=== PATIENT | female | born 1960 | race Caucasian/White ===

== ENCOUNTER → 2017-12-04 13:11 | Outpatient (REF) | payer MEDICARE, SELFPAY | LOC: LAB 13:11 | PROVIDERS: Visit Provider Emergency Medicine ==

== ENCOUNTER → 2018-01-01 13:56 | Outpatient (CLI) | payer MEDICARE, SELFPAY ==
[2018-01-01 18:57] LABS: Amphetamine/Metha Screen,Urine Negative ng/mL (<1000); Barbiturates Screen,Urine Negative ng/mL (<200); Benzodiazepines Screen,Urine Negative ng/mL (200); Cannabinoid Screen,Urine Positive ng/mL (<50); Cocaine Screen,Urine Negative ng/g (<300); Methadone Screen,Urine Negative ng/mL (<300); Opiate Screen,Urine Positive ng/mL (<300); Phencyclidine Screen,Urine Negative ng/mL (<25)
== END ==
PROVIDERS: Visit Provider Emergency Medicine
DX: Z79.899 Other long term (current) drug therapy (principal)
CPT/HCPCS: 80305

== ENCOUNTER → 2018-02-01 14:55 | Outpatient (REF) | payer MEDICARE, SELFPAY ==
[2018-02-01 17:45] LABS: Microscopic, Urine URINE MICROSCOPIC (MICROSCOPIC)
[2018-02-01 18:45] LABS: Appearance,Urine CLEAR (Clear); Bilirubin,Urine Negative (Negative); Blood, Urine Negative (Negative); Color,Urine YELLOW (Yellow); Glucose,Urine (UA) Negative (Negative); Ketones,Urine Negative (Negative); Leukocyte Esterase,Urine 1+ (Negative); Nitrate,Urine Negative (Negative); Protein,Urine Negative (Negative); Specific Gravity, Urine <= 1.005 (1.005-1.030); Urobilinogen,Urine 0.2 EU/dl (0.2)
[2018-02-01 18:48] LABS: Basophils % 0.4 % (0.1-2.0); Eosinophils # 0.4 K/mm3 (0.0-0.4); Eosinophils % 5.5 % (0.1-12.0); Hematocrit 37.6 % (37.0-47.0); Hemoglobin 11.9 g/dL (12.2-16.2); Lymphocytes # 1.6 K/mm3 (0.7-4.5); Lymphocytes % 24.5 K/mm3 (10-50); Mean Corpuscular HGB Conc 31.6 g/dL (31.8-35.4); Mean Corpuscular Volume 94.9 fl (81-99); Mean Platelet Volume 8.8 fl (7.4-10.4); Monocytes # 0.4 K/mm3 (0.1-1.0); Monocytes % 5.5 % (1.7-9.3); Neutrophils # 4.1 K/mm3 (1.8-7.8); Platelet Count 268 K/mm3 (142-424); Red Blood Count 3.97 M/mm3 (4.20-5.40); Red Cell Distribution Width 14.2 % (11.5-17.5); White Blood Count 6.4 K/mm3 (4.8-10.8)
[2018-02-01 18:54] LABS: Amphetamine/Metha Screen,Urine Negative ng/mL (<1000); Barbiturates Screen,Urine Negative ng/mL (<200); Benzodiazepines Screen,Urine Negative ng/mL (200); Cannabinoid Screen,Urine Positive ng/mL (<50); Cocaine Screen,Urine Negative ng/g (<300); Methadone Screen,Urine Negative ng/mL (<300); Opiate Screen,Urine Negative ng/mL (<300); Phencyclidine Screen,Urine Negative ng/mL (<25)
[2018-02-01 19:03] LABS: Bacteria,Urine Trace /lpf; Transitional Epi Cells,Urine OCC #/lpf (0-3)
[2018-02-01 19:17] LABS: Alanine Aminotransferase 22 U/L (12-78); Albumin Level 4.2 gm/dL (3.4-5.0); Albumin/Globulin Ratio 1.6 (1.1-1.8); Alkaline Phosphatase 117 U/L (46-116); Anion Gap 14.8 mEq/L (5-15); Aspartate Amino Transferase 18 U/L (15-37); Bilirubin,Total 0.2 mg/dL (0.2-1.0); Blood Urea Nitrogen 9 mg/dL (7-18); Calcium 8.9 mg/dL (8.5-10.1); Carbon Dioxide 26 mmol/L (21.0-32.0); Chloride 104 mmol/L (98-107); Creatinine,Serum 1.09 mg/dL (0.55-1.02); Estimated Glomerular Filt Rate 52 ml/min (>60); GFR (African American) 63 ML/MIN (>60); Globulin 2.7 gm/dl (1.3-3.2); Glucose 139 mg/dL (74-106); Potassium 3.8 mmoL/L (3.5-5.1); Sodium 141 mmol/L (136-145); Thyroid Stimulating Hormone 0.69 uIU/ml (0.358-3.740); Total Protein,Serum 6.9 gm/dL (6.4-8.2)
[2018-02-03 16:32] LABS: Vitamin D 25 Hydroxy 37.3 ng/mL (30.0-100.0)
== END ==
LOC: LAB 14:55
PROVIDERS: Visit Provider Emergency Medicine
DX: Z79.899 Other long term (current) drug therapy (principal); N39.0 Urinary tract infection, site not specified; M54.9 Dorsalgia, unspecified; R53.83 Other fatigue
CPT/HCPCS: 80053; 80305; 81001; 82652; 84439; 84443; 85025; 87086

== ENCOUNTER → 2018-02-17 13:29 | Outpatient (REF) | payer MEDICARE, SELFPAY ==
[2018-02-19 10:52] LABS: Vitamin B12 454 pg/mL (232-1245)
== END ==
LOC: LAB 13:29
PROVIDERS: Visit Provider Emergency Medicine
DX: R53.83 Other fatigue (principal)
CPT/HCPCS: 82607

== ENCOUNTER → 2018-03-03 15:09 | Outpatient (REF) | payer MEDICARE, SELFPAY ==
[2018-03-03 21:01] LABS: Amphetamine/Metha Screen,Urine Negative ng/mL (<1000); Barbiturates Screen,Urine Negative ng/mL (<200); Benzodiazepines Screen,Urine Negative ng/mL (200); Cannabinoid Screen,Urine Negative ng/mL (<50); Cocaine Screen,Urine Negative ng/g (<300); Methadone Screen,Urine Negative ng/mL (<300); Opiate Screen,Urine Positive ng/mL (<300); Phencyclidine Screen,Urine Negative ng/mL (<25)
== END ==
LOC: LAB 15:09
PROVIDERS: Visit Provider Emergency Medicine
DX: Z79.899 Other long term (current) drug therapy (principal)
CPT/HCPCS: 80305

== ENCOUNTER → 2018-03-31 08:13 | Outpatient (CLI) | payer MEDICARE, SELFPAY ==
[2018-04-01 10:25] LABS: Amphetamine/Metha Screen,Urine Negative ng/mL (<1000); Barbiturates Screen,Urine Negative ng/mL (<200); Benzodiazepines Screen,Urine Negative ng/mL (200); Cannabinoid Screen,Urine Positive ng/mL (<50); Cocaine Screen,Urine Negative ng/g (<300); Methadone Screen,Urine Negative ng/mL (<300); Opiate Screen,Urine Negative ng/mL (<300); Phencyclidine Screen,Urine Negative ng/mL (<25)
== END ==
PROVIDERS: Visit Provider Emergency Medicine
DX: Z79.899 Other long term (current) drug therapy (principal)
CPT/HCPCS: 80305

== ENCOUNTER → 2018-05-03 13:02 | Outpatient (REF) | payer MEDICARE, SELFPAY ==
[2018-05-03 19:30] LABS: Amphetamine/Metha Screen,Urine Negative ng/mL (<1000); Barbiturates Screen,Urine Negative ng/mL (<200); Benzodiazepines Screen,Urine Negative ng/mL (<200); Cannabinoid Screen,Urine Positive ng/mL (<50); Cocaine Screen,Urine Negative ng/mL (<300); Methadone Screen,Urine Negative ng/mL (<300); Opiate Screen,Urine Positive ng/mL (<300); Phencyclidine Screen,Urine Negative ng/mL (<25)
== END ==
LOC: LAB 13:02
PROVIDERS: Visit Provider Emergency Medicine
DX: M54.5 Low back pain (principal)
CPT/HCPCS: 80305

== ENCOUNTER → 2018-05-25 13:43 | Outpatient (CLI) | payer MEDICARE, SELFPAY | PROVIDERS: Visit Provider Physician Assistant | DX: Z79.899 Other long term (current) drug therapy (principal); M54.9 Dorsalgia, unspecified ==

== ENCOUNTER → 2018-05-25 14:00 | Outpatient (REF) | payer MEDICARE, SELFPAY ==
[2018-05-25 18:48] LABS: Amphetamine/Metha Screen,Urine Negative ng/mL (<1000); Barbiturates Screen,Urine Negative ng/mL (<200); Benzodiazepines Screen,Urine Positive ng/mL (<200); Cannabinoid Screen,Urine Positive ng/mL (<50); Cocaine Screen,Urine Negative ng/mL (<300); Methadone Screen,Urine Negative ng/mL (<300); Opiate Screen,Urine Negative ng/mL (<300); Phencyclidine Screen,Urine Negative ng/mL (<25)
== END ==
LOC: LAB 14:00
PROVIDERS: Visit Provider Emergency Medicine
DX: Z79.899 Other long term (current) drug therapy (principal); M54.9 Dorsalgia, unspecified
CPT/HCPCS: 80305; 87077; 87086

== ENCOUNTER → 2018-06-01 13:44 | Outpatient (CLI) | payer MEDICARE, SELFPAY | PROVIDERS: Visit Provider Physician Assistant | DX: M54.9 Dorsalgia, unspecified (principal) ==

== ENCOUNTER → 2018-07-06 13:44 | Outpatient (REF) | payer MEDICARE, SELFPAY ==
[2018-07-06 18:00] LABS: Amphetamine/Metha Screen,Urine Negative ng/mL (<1000); Barbiturates Screen,Urine Negative ng/mL (<200); Benzodiazepines Screen,Urine Negative ng/mL (<200); Cannabinoid Screen,Urine Positive ng/mL (<50); Cocaine Screen,Urine Negative ng/mL (<300); Methadone Screen,Urine Negative ng/mL (<300); Opiate Screen,Urine Positive ng/mL (<300); Phencyclidine Screen,Urine Negative ng/mL (<25)
== END ==
LOC: LAB 13:44
PROVIDERS: Visit Provider Emergency Medicine
DX: Z79.899 Other long term (current) drug therapy (principal); R39.89 Other symptoms and signs involving the genitourinary system
CPT/HCPCS: 80305; 87086

== ENCOUNTER → 2018-08-04 14:09 | Outpatient (REF) | payer MEDICARE, SELFPAY ==
[2018-08-04 18:41] LABS: Amphetamine/Metha Screen,Urine Negative ng/mL (<1000); Barbiturates Screen,Urine Negative ng/mL (<200); Benzodiazepines Screen,Urine Negative ng/mL (<200); Cannabinoid Screen,Urine Positive ng/mL (<50); Cocaine Screen,Urine Negative ng/mL (<300); Methadone Screen,Urine Negative ng/mL (<300); Opiate Screen,Urine Positive ng/mL (<300); Phencyclidine Screen,Urine Negative ng/mL (<25)
== END ==
LOC: LAB 14:09
PROVIDERS: Visit Provider Emergency Medicine
DX: Z79.899 Other long term (current) drug therapy (principal)
CPT/HCPCS: 80305

== ENCOUNTER → 2018-09-02 16:33 | Outpatient (CLI) | payer MEDICARE, SELFPAY ==
[2018-09-03 18:29] LABS: Amphetamine/Metha Screen,Urine Negative ng/mL (<1000); Barbiturates Screen,Urine Negative ng/mL (<200); Benzodiazepines Screen,Urine Negative ng/mL (<200); Cannabinoid Screen,Urine Positive ng/mL (<50); Cocaine Screen,Urine Negative ng/mL (<300); Methadone Screen,Urine Negative ng/mL (<300); Opiate Screen,Urine Positive ng/mL (<300); Phencyclidine Screen,Urine Negative ng/mL (<25)
[2018-09-10 09:24] LABS: Opiates Negative ng/mL (Cutoff=100)
== END ==
PROVIDERS: PCP Emergency Medicine; Visit Provider Emergency Medicine
DX: M54.5 Low back pain (principal)
CPT/HCPCS: 80305; 80361; G0480

== ENCOUNTER → 2018-10-04 18:25 | Outpatient (CLI) | payer MEDICARE, SELFPAY ==
[2018-10-04 19:14] LABS: Amphetamine/Metha Screen,Urine Negative ng/mL (<1000); Barbiturates Screen,Urine Negative ng/mL (<200); Benzodiazepines Screen,Urine Negative ng/mL (<200); Cannabinoid Screen,Urine Positive ng/mL (<50); Cocaine Screen,Urine Negative ng/mL (<300); Methadone Screen,Urine Negative ng/mL (<300); Opiate Screen,Urine Positive ng/mL (<300); Phencyclidine Screen,Urine Negative ng/mL (<25)
== END ==
PROVIDERS: Visit Provider Emergency Medicine
DX: Z79.899 Other long term (current) drug therapy (principal)
CPT/HCPCS: 80305

== ENCOUNTER → 2018-11-05 18:09 | Outpatient (CLI) | payer MEDICARE, SELFPAY ==
[2018-11-05 21:25] LABS: Amphetamine/Metha Screen,Urine Negative ng/mL (<1000); Barbiturates Screen,Urine Negative ng/mL (<200); Benzodiazepines Screen,Urine Negative ng/mL (<200); Cannabinoid Screen,Urine Positive ng/mL (<50); Cocaine Screen,Urine Negative ng/mL (<300); Methadone Screen,Urine Negative ng/mL (<300); Opiate Screen,Urine Positive ng/mL (<300); Phencyclidine Screen,Urine Negative ng/mL (<25)
== END ==
PROVIDERS: Visit Provider Emergency Medicine
DX: Z79.899 Other long term (current) drug therapy (principal)
CPT/HCPCS: 80305

== ENCOUNTER → 2018-11-24 10:06 | Outpatient (CLI) | payer MEDICARE, SELFPAY ==
--- NOTE | 2018-11-24 10:09 | MM_ITS ---
MM Dig screening mamm BI w/CAD CAD Screening COMPARISON: Digital mammograms with CAD 04/23/2017 and 08/12/2011 INDICATION: There is a history of breast cancer in patient's 2 sisters diagnosed at age 60 and age 45. TECHNIQUE: Standard CC and MLO images were obtained. R2 CAD reviewed. FINDINGS: Moderate diffuse heterogenic fibroglandular densities are seen in the central portions of both breasts and the findings are fairly symmetrical and bilateral. There is no suspicious lesion and there are no suspicious microcalcifications. IMPRESSION: Moderate heterogenic breast density with no suspicious lesion seen BI-RADS Category: 1 Negative RECOMMENDED FOLLOW-UP: 1YR - 1 YEAR FOLLOW-UP (A letter has been sent to the patient regarding results of the study.)
== END ==
PROVIDERS: PCP Emergency Medicine; Visit Provider Emergency Medicine
DX: Z12.31 Encounter for screening mammogram for malignant neoplasm of breast (principal)
CPT/HCPCS: 77067

== ENCOUNTER → 2019-01-04 17:32 | Outpatient (CLI) | payer MEDICARE, SELFPAY ==
[2019-01-04 18:32] LABS: Basophils % 0.3 % (0.1-2.0); Eosinophils # 0.3 K/mm3 (0.0-0.4); Eosinophils % 4.5 % (0.1-12.0); Hematocrit 37.2 % (37.0-47.0); Hemoglobin 11.9 g/dL (12.2-16.2); Lymphocytes # 1.8 K/mm3 (0.7-4.5); Lymphocytes % 25.9 % (10-50); Mean Corpuscular Hemoglobin 29.1 pg (27.0-31.2); Mean Corpuscular Volume 91.1 fl (81-99); Mean Platelet Volume 8.4 fl (7.4-10.4); Monocytes # 0.2 K/mm3 (0.1-1.0); Monocytes % 2.7 % (1.7-9.3); Neutrophils # 4.6 K/mm3 (1.8-7.8); Neutrophils % 66.5 % (37.0-80.0); Platelet Count 296 K/mm3 (142-424); Red Blood Count 4.09 M/mm3 (4.20-5.40); Red Cell Distribution Width 15.2 % (11.5-17.5); White Blood Count 6.8 K/mm3 (4.8-10.8)
[2019-01-04 19:03] LABS: Alanine Aminotransferase 18 U/L (12-78); Albumin/Globulin Ratio 1.3 (1.1-1.8); Alkaline Phosphatase 123 U/L (46-116); Anion Gap 14.1 mEq/L (5-15); Aspartate Amino Transferase 10 U/L (15-37); Bilirubin,Total 0.5 mg/dL (0.2-1.0); Blood Urea Nitrogen 8 mg/dL (7-18); Calcium 9.1 mg/dL (8.5-10.1); Carbon Dioxide 28 mmol/L (21.0-32.0); Chloride 104 mmol/L (98-107); Chol/HDL Ratio 3.6 (1-3.5); Cholesterol 175 mg/dL (140-200); Creatinine,Serum 1.22 mg/dL (0.55-1.02); Estimated Glomerular Filt Rate 45 ml/min (>60); Free T4 (Free Thyroxine) 0.73 ng/dl (0.76-1.46); GFR (African American) 55 ML/MIN (>60); Globulin 3.1 gm/dl (1.3-3.2); Glucose 130 mg/dL (74-106); HDL Cholesterol 49 mg/dL (29-89); LDL Cholesterol 91 mg/dL (0-130); Potassium 4.1 mmoL/L (3.5-5.1); Sodium 142 mmol/L (136-145); Thyroid Stimulating Hormone 1.36 uIU/ml (0.358-3.740); Total Protein,Serum 7.1 gm/dL (6.4-8.2); Triglycerides 174 mg/dL (30-200); VLDL Cholesterol 35 mg/dL (0-40)
[2019-01-04 21:39] LABS: Amphetamine/Metha Screen,Urine Negative ng/mL (<1000); Barbiturates Screen,Urine Negative ng/mL (<200); Benzodiazepines Screen,Urine Negative ng/mL (<200); Cannabinoid Screen,Urine Positive ng/mL (<50); Cocaine Screen,Urine Negative ng/mL (<300); Methadone Screen,Urine Negative ng/mL (<300); Opiate Screen,Urine Positive ng/mL (<300); Phencyclidine Screen,Urine Negative ng/mL (<25)
[2019-01-08 10:07] LABS: Vitamin B12 692 pg/mL (232-1245); Vitamin D 25 Hydroxy 31.4 ng/mL (30.0-100.0)
== END ==
PROVIDERS: Visit Provider Emergency Medicine
DX: I10 Essential (primary) hypertension (principal); Z79.899 Other long term (current) drug therapy
CPT/HCPCS: 80053; 80061; 80305; 82607; 82652; 84439; 84443; 85025

== ENCOUNTER → 2019-03-01 17:51 | Outpatient (CLI) | payer MEDICARE, MEDICAID, SELFPAY ==
[2019-03-01 19:14] LABS: Amphetamine/Metha Screen,Urine Negative ng/mL (<1000); Barbiturates Screen,Urine Negative ng/mL (<200); Benzodiazepines Screen,Urine Negative ng/mL (<200); Cannabinoid Screen,Urine Positive ng/mL (<50); Cocaine Screen,Urine Negative ng/mL (<300); Methadone Screen,Urine Negative ng/mL (<300); Opiate Screen,Urine Positive ng/mL (<300); Phencyclidine Screen,Urine Negative ng/mL (<25)
[2019-03-01 19:23] LABS: Hemoglobin A1C 5.9 % (0.0-7.0)
== END ==
PROVIDERS: Visit Provider Emergency Medicine
DX: R73.09 Other abnormal glucose (principal); Z79.899 Other long term (current) drug therapy
CPT/HCPCS: 80305; 83036

== ENCOUNTER → 2019-05-02 17:23 | Outpatient (CLI) | payer MEDICARE, MEDICAID, SELFPAY ==
[2019-05-02 18:15] LABS: Amphetamine/Metha Screen,Urine Negative ng/mL (<1000); Barbiturates Screen,Urine Negative ng/mL (<200); Benzodiazepines Screen,Urine Negative ng/mL (<200); Cannabinoid Screen,Urine Positive ng/mL (<50); Cocaine Screen,Urine Negative ng/mL (<300); Methadone Screen,Urine Negative ng/mL (<300); Opiate Screen,Urine Positive ng/mL (<300); Phencyclidine Screen,Urine Negative ng/mL (<25)
== END ==
PROVIDERS: Visit Provider Emergency Medicine
DX: Z79.899 Other long term (current) drug therapy (principal)
CPT/HCPCS: 80305

== ENCOUNTER → 2019-07-01 17:12 | Outpatient (CLI) | payer MEDICARE, MEDICAID, SELFPAY ==
[2019-07-01 18:10] LABS: Amphetamine/Metha Screen,Urine Negative ng/mL (<1000); Barbiturates Screen,Urine Negative ng/mL (<200); Benzodiazepines Screen,Urine Negative ng/mL (<200); Cannabinoid Screen,Urine Positive ng/mL (<50); Cocaine Screen,Urine Negative ng/mL (<300); Methadone Screen,Urine Negative ng/mL (<300); Opiate Screen,Urine Positive ng/mL (<300); Phencyclidine Screen,Urine Negative ng/mL (<25)
== END ==
PROVIDERS: Visit Provider Emergency Medicine
DX: M54.16 Radiculopathy, lumbar region (principal)
CPT/HCPCS: 80305

== ENCOUNTER → 2019-08-30 17:21 | Outpatient (CLI) | payer MEDICARE, MEDICAID, SELFPAY ==
[2019-08-30 18:27] LABS: Amphetamine/Metha Screen,Urine Negative ng/mL (<1000); Barbiturates Screen,Urine Negative ng/mL (<200); Benzodiazepines Screen,Urine Negative ng/mL (<200); Cannabinoid Screen,Urine Positive ng/mL (<50); Cocaine Screen,Urine Negative ng/mL (<300); Methadone Screen,Urine Negative ng/mL (<300); Opiate Screen,Urine Negative ng/mL (<300); Phencyclidine Screen,Urine Negative ng/mL (<25)
[2019-09-09 17:14] LABS: Opiates Negative ng/mL (Cutoff=100)
== END ==
PROVIDERS: Visit Provider Emergency Medicine
DX: M54.16 Radiculopathy, lumbar region (principal)
CPT/HCPCS: 80305; 80361; G0480

== ENCOUNTER → 2019-10-21 16:54 | Outpatient (CLI) | payer MEDICARE, MEDICAID, SELFPAY ==
[2019-10-21 19:02] LABS: Amphetamine/Metha Screen,Urine Negative ng/mL (<1000); Barbiturates Screen,Urine Negative ng/mL (<200); Benzodiazepines Screen,Urine Negative ng/mL (<200); Cannabinoid Screen,Urine Positive ng/mL (<50); Cocaine Screen,Urine Negative ng/mL (<300); Methadone Screen,Urine Negative ng/mL (<300); Opiate Screen,Urine Positive ng/mL (<300); Phencyclidine Screen,Urine Negative ng/mL (<25)
== END ==
PROVIDERS: Visit Provider Emergency Medicine
DX: M54.16 Radiculopathy, lumbar region (principal)
CPT/HCPCS: 80305

== ENCOUNTER 2019-11-08 13:28 | Observation (INO) ==
--- NOTE | 2019-11-08 13:39 | Emergency Department Note ---
ED Disposition Clinical Impression: Acute dyspnea, Acute exacerbation of chronic obstructive airways disease, Failure of outpatient treatment Disposition: Admitted As Inpatient Condition on Discharge: Fair Referrals: Carlos Hernandez MD [Primary Care Provider] - Time of Disposition: 16:25 - Critical Care Critical Care Time: Yes (30) Attestation: On , the high probability of a clinically significant, sudden or life threatening deterioration of the following system(s) required my full and direct attention, intervention and personal management. The time I documented below is in addition to time spent performing reported procedures but includes the following listed in this critical care notation. Vital system(s) involved:: Respiratory Failure My critical care processes included: Assessment & monitoring of V/S, Initial and Re-exams, Data Review/Interpretation, Coordinating Care, Medication Orders and management, Documentation Medical Decision Making - Nicola Inquiry Pt receiving controlled substance: Yes Nicola was queried for this patient: No Risks and benefits of using a controlled substance: were not discussed with pt by me Vital Signs: 11/08/19 13:29 11/08/19 14:58 Temperature 98.4 F Temperature Source Oral Pulse Rate 77 Pulse Rate [Right] 75 Respiratory Rate 22 Blood Pressure [Right Arm] 168/82 H Blood Pressure Mean [Right Arm] 110 02 Sat by Pulse Oximetry 100 - Lab Data Lab results reviewed: Yes: I reviewed the patient's lab results. Lab Results 11/08/19 13:35: Specimen Source L brachial, O2 % Room air, ABG pH 7.61 H*, ABG pCO2 15.1 L, ABG pO2 70.0 L, ABG HCO3 15.0 L, ABG Total CO2 15.4 L, ABG O2 Saturation 97, ABG Base Excess -6.4 L 11/08/19 13:45: WBC 9.1, RBC 4.50, Hgb 13.3, Hct 40.5, MCV 90.0, MCH 29.5, MCHC 32.8, RDW 14.6, Plt Count 268, MPV 8.5, Neut % (Auto) 78.5, Lymph % (Auto) 18.2, [place] % (Auto) 2.8, Eos % (Auto) 0.3, Baso % (Auto) 0.3, Neut # (Auto) 7.2, Lymph # (Auto) 1.7, [place] # (Auto) 0.3, Eos # (Auto) 0.0, Baso # (Auto) 0.0 11/08/19 13:45: Sodium 139, Potassium 3.0 L, Chloride 101, Carbon Dioxide 19 L, Anion Gap 22.0 H, BUN 16, Creatinine 1.41 H, Estimated Creat Clear 46, Estimated GFR 38 L, Est GFR ( Amer) 46 L, Glucose 118 H, Calcium 9.5, Total Bilirubin 0.3, AST 17, ALT 23, Alkaline Phosphatase 128 H, Troponin I < 0.02, C- Reactive Protein < 0.2, Total Protein 7.9, Albumin 4.4, Globulin 3.5 H, Albumin/Globulin Ratio 1.3 11/08/19 13:45: Lactate 3.1 H 11/08/19 13:45: B-Natriuretic Peptide 54 11/08/19 13:45: ESR 21 11/08/19 13:45: Chlamy pneumoniae PCR Not detected, Adenovirus (PCR) Not detected, B. pertussis DNA (PCR) Not detected, Coronavirus OC43 (PCR) Not detected, Coronavirus HKU1 (PCR) Not detected, Coronavirus 229E (PCR) Not detec selma, Coronavirus NL63 (PCR) Not detected, Human Metapneumovir PCR Detected A, Influenza A (H1) PCR Not detected, Influ A (H1N1/09) PCR Not detected, Influenza A (H3) PCR Not detected, Influenza Type A (PCR) Not detected, Influenza Type B (PCR) Not detected, M. pneumoniae (PCR) Not detected, Parainfluenza 1 (PCR) Not detected, Parainfluenza 2 (PCR) Not detected, Parainfluenza 3 (PCR) Not detected, Parainfluenza 4 (PCR) Not detected, RSV (PCR) Not detected, Entero/Rhino (PCR) Not detected Result diagrams: 11/08/19 13:45 11/08/19 13:45 Orders (Tests/Meds): ED MEDICATIONS Generic Name Dose Route Start Last Admin Trade Name Freq PRN Reason Stop Dose Admin Sodium Chloride 1,000 mls @ 150 mls/hr 11/08/19 15:00 11/08/19 15:08 Sod Chlor 0.9% 1000ml Bag IV 12/08/19 14:59 150 mls/hr .[id number] BRITTANY Administration Sodium Chloride 3 ml 11/08/19 13:52 Sodium Chloride 3% 15ml [facility] 12/08/19 13:51 ONCE PRN INDUCE SPUTUM COLLECTION Sodium Chloride 3 ml 11/08/19 15:34 Sodium Chloride 3% 15ml [facility] 12/08/19 15:33 ONCE PRN INDUCE SPUTUM COLLECTION Discontinued Medications Generic Name Dose Route Start Last Admin Trade Name Freq PRN Reason Stop Dose Admin Albuterol Sulfate 5 mg 11/08/19 14:45 11/08/19 14:56 Albuterol 0.083% 2.5mg/3ml [facility] 11/08/19 14:46 5 mg ONCE ONE Administration Albuterol/Ipratropium 3 ml 11/08/19 13:36 11/08/19 13:51 Duoneb 3ml [facility] 11/08/19 13:37 3 ml ONCE ONE Administration Ceftriaxone Sodium 1 gm/ 50 mls @ 100 mls/hr 11/08/19 13:36 11/08/19 13:51 Sodium Chloride IV 11/08/19 14:05 100 mls/hr ONCE STA Administration Protocol Methylprednisolone Sodium Succinate 125 mg 11/08/19 14:45 11/08/19 15:08 Solu-Medrol 125mg/2ml Vial IV 11/08/19 14:46 125 mg ONCE ONE Administration Potassium Chloride 40 meq 11/08/19 14:55 11/08/19 15:08 Klor-Con 20meq Tablet PO 11/08/19 14:56 40 meq ONCE ONE Administration ORDERS Category Date Time Status Troponin I Q3H Lab 11/08/19 16:45 Ordered Troponin I Q3H Lab 11/08/19 19:45 Ordered Blood Culture Stat Micro 11/08/19 13:45 Received - Radiology Data #1 Image(s): Chest FINDINGS: The cardiomediastinal silhouette and pulmonary vascularity are within normal limits. There is chronic coarsening of the bronchovascular markings/COPD. No lobar consolidation or collapse Thoracic scoliosis IMPRESSION: COPD with chronic changes, no acute finding Dictated by: Dmitry Franz MD 11/08/2019 14:11 Electronically signed by Dmitry Franz MD in [place] 11/08/2019 14:11 - ECG Data Tracing #1 EKG done at 1332 hrs. shows normal sinus rhythm with normal P waves, normal MI interval, normal QRS pattern, left axis deviation, nonspecific ST-T changes. Downsloping of the ST-T segment on V2 V3. T wave inversion in V1 V2 V3 V4. - Physician Consults Physician Consulted: Dr. Hernandez Time: 16:10 Reason -: Admission Comment/Response: Discussed with Dr. Hernandez regarding the patient and plan to get the patient admitted to the floor. - Reevaluation(s) Time: 14:20 Reevaluation #1: Is still wheezing with some bronchospasm. Plan to give her more breathing treatments to observe. Plan to admit the patient after discussing the case with Dr. Hernandez. Time: 15:20 Reevaluation #3: Patient is still wheezing to some extent. Waiting for Dr. Hernandez to call me back to get the patient admitted. Resp/SOB HPI - General Chief Complaint: Shortness of Breath/Dyspnea Stated Complaint: tightness in chest,SOA Time Seen by Provider: 11/08/19 13:34 Mode of Arrival: Wheelchair Source of Information: Patient Limitations: No Limitations - History of Present Illness 59-year-old female presents with chief complaint of having loss of breath and wheezing for the last 1 week. He states she has been sick for more than a week. She had been to the emergency department at outside hospital and was prescribed prednisone along with antibiotics which she took for the whole course. Today was her last day of the antibiotics. She states her symptoms has not gotten better. She started getting worse today. She is still wheezing extensively and feels short of breath. Patient was referred from the outpatient clinic to the emergency department due to her shortness of breath. She denies having fever or chills. Denies having nausea or vomiting. Denies having any acute chest pain. He does not smoke. She states she has history of congestive heart failure she has not been on any breathing treatment so far. She was prescribed prednisone along with azithromycin for the last 1 week or so. There is no exacerbating or relieving factors. MD Complaint: shortness of breath Onset (ago): week(s) Context: recent illness Severity: moderate Consistency/Duration: intermittent Relieving factors: upright position Treatment prior to arrival: none, other (Patient has been taking Zithromax and prednisone for the last 1 week.) - Related Data Home Medications Medication Instructions Recorded Confirmed ondansetron HCl 4 mg tablet 4 mg PO Q6H tab 11/03/17 10/21/19 Previous Rx's Medication Instructions Recorded aspirin 325 mg tablet 325 mg PO QDAY #90 tab 06/09/18 cetirizine 10 mg capsule 10 mg PO QDAY #90 cap 06/09/18 clopidogrel 75 mg tablet 75 mg PO DAILY #90 tab 06/09/18 fluticasone propionate 50 50 mcg INTRANASAL ONCE #16 g 06/09/18 mcg/actuation nasal spray,suspension bisoprolol fumarate 5 mg tablet 5 mg PO QDAY #90 tab 12/03/18 esomeprazole magnesium 40 mg See Rx Instructions .ROUTE 05/03/19 capsule,delayed release .COMPLEX #90 capsule gabapentin 600 mg tablet 600 mg PO TID #90 tab 08/30/19 escitalopram oxalate 20 mg tablet See Rx Instructions .ROUTE 10/07/19 .COMPLEX #90 tab oxycodone 10 mg tablet 10 mg PO TID PRN #90 tab 10/21/19 atorvastatin 40 mg tablet 40 mg PO QDAY #90 tab 11/07/19 cyclobenzaprine 10 mg tablet See Rx Instructions .ROUTE 11/07/19 .COMPLEX #30 tab Allergies Allergy/AdvReac Type Severity Reaction Status Date / Time Sulfa (Sulfonamide Allergy Unknown I-HIVES Verified 10/21/19 14:06 Antibiotics) [SULFA (SULFONAMIDE ANTIBIOTICS)] prednisone Allergy Anaphylaxis Verified 10/21/19 14:06 - Well's Criteria PE Score Clinical signs/symptoms of DVT: No PE is #1 diagnosis or equally likely: No Heart rate is > 100: No Immobile at least 3 days, or surgery in past 4 wks: No Previously, obj. diagnosed PE or DVT: No Hemoptysis: No Malignancy w/Rx within 6mo, or palliative: No PE Score: 0 [facility] History - Hepatitis A Screen Attestation statement:: This patient has been screened for Hepatitis A risk factors. Medical History: Reports:: Coronary Artery Disease, Depression, Gastroesophageal Reflux Disease(GERD), Hyperlipidemia, Hypertension, Migraine, Myocardial Infarction, Renal Disease Other Medical History: Reports: Arthritis Other Surgeries: Yes: Angioplasty, Cardiac Catheterization, Cholecystectomy, Colonoscopy, Hysterectomy-Total, Other Amputation: No Fractures: No Comment: 2010 heart cath, 1979 gallbladder, 2011 Rt kidney removal - Social History Smoking Status: Never smoker Alcohol Intake: never Alcohol Intake Frequency:: other Substance Use Type: denies use Occupational Status: disabled Housing: apartment Household Members: other - Psychiatric History Pschychiatric History:: Reports:: Depression Family Hx:: Cancer, Heart Attack, Diabetes ROS Obtained: Yes All systems reviewed & no additional complaints Physical Exam - General General appearance: alert, in no apparent distress, anxious - Head Head exam: atraumatic, normocephalic, normal inspection - Eye Eye exam: Present: normal appearance, PERRL, EOMI - ENT ENT exam: Present: normal exam, normal oropharynx, mucous membranes moist, normal external ear exam - Neck Neck exam: Present: normal inspection, full ROM, trachea midline - Chest Chest inspection: Present: normal inspection, symmetric chest wall rise. Absent: tenderness - Respiratory Respiratory exam: Present: respiratory distress, wheezes, prolonged expiratory phase, other (Bilateral wheezing extensively.) - Cardiovascular Cardiovascular exam: Present: regular rate, normal rhythm. Absent: JVD - Abdominal Exam Abdominal exam: Present: soft, normal bowel sounds. Absent: distention, tenderness, guarding - Extremities Exam Extremities exam: Present: normal inspection, full ROM, normal capillary refill. Absent: calf tenderness - Back Exam Back exam: Present: normal inspection. Absent: tenderness - Neurological Exam Neurological exam: Present: alert, oriented X3, CN II-XII intact - Psychiatric Psychiatric exam: Present: normal affect, normal mood - Skin Skin exam: Present: warm, dry, intact, normal color
[2019-11-08 13:54] LABS: ABG Base Excess -6.4 mmol/L (-2.4-2.3); ABG Oxygen Saturation 97 % (90-100); ABG TCO2 15.4 mmhg (23-27)
[2019-11-08 13:56] LABS: Oxygen ROOM AIR %
[2019-11-08 13:57] LABS: ABG PCO2 15.1 mmhg (35.0-45.0); ABG PH 7.61 mmol/L (7.35-7.45)
[2019-11-08 13:59] LABS: Coronavirus 229E Not Detected (NotDetected); Coronavirus NL63 Not Detected (NotDetected); Coronavirus OC43 Not Detected (NotDetected); Coronovirus HKU1,PCR Not Detected (NotDetected)
[2019-11-08 14:05] LABS: Basophils % 0.3 % (0.1-2.0); Eosinophils % 0.3 % (0.1-12.0); Hematocrit 40.5 % (37.0-47.0); Hemoglobin 13.3 g/dL (12.2-16.2); Lymphocytes # 1.7 K/mm3 (0.7-4.5); Lymphocytes % 18.2 % (10-50); Mean Corpuscular HGB Conc 32.8 g/dL (31.8-35.4); Mean Platelet Volume 8.5 fl (7.4-10.4); Monocytes # 0.3 K/mm3 (0.1-1.0); Monocytes % 2.8 % (1.7-9.3); Neutrophils # 7.2 K/mm3 (1.8-7.8); Neutrophils % 78.5 % (37.0-80.0); Platelet Count 268 K/mm3 (142-424); Red Cell Distribution Width 14.6 % (11.5-17.5); White Blood Count 9.1 K/mm3 (4.8-10.8)
[2019-11-08 14:16] LABS: Alanine Aminotransferase 23 U/L (12-78); Albumin Level 4.4 gm/dL (3.4-5.0); Albumin/Globulin Ratio 1.3 (1.1-1.8); Alkaline Phosphatase 128 U/L (46-116); Aspartate Amino Transferase 17 U/L (15-37); Bilirubin,Total 0.3 mg/dL (0.2-1.0); Blood Urea Nitrogen 16 mg/dL (7-18); Calcium 9.5 mg/dL (8.5-10.1); Carbon Dioxide 19 mmol/L (21.0-32.0); Chloride 101 mmol/L (98-107); Globulin 3.5 gm/dl (1.3-3.2); Glucose 118 mg/dL (74-106); Sodium 139 mmol/L (136-145); Total Protein,Serum 7.9 gm/dL (6.4-8.2)
[2019-11-08 14:27] LABS: C-Reactive Protein < 0.2 mg/dL (0.0-0.9)
--- NOTE | 2019-11-08 20:38 | History & Physical Report ---
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 He states she has been sick for more than a week. She had been to the emergency department at outside hospital and was prescribed prednisone along with antibiotics which she took for the whole course. Today was her last day of the antibiotics. She states her symptoms has not gotten better. She started getting worse today. She is still wheezing extensively and feels short of breath. Patient was referred from the outpatient clinic to the emergency department due to her shortness of breath. She denies having fever or chills. Denies having nausea or vomiting. Denies having any acute chest pain. He does not smoke. She states she has history of congestive heart failure she has not been on any breathing treatment so far. She was prescribed prednisone along with azithromycin for the last 1 week or so. There is no exacerbating or relieving factors. pt was admitted [facility] History I have reviewed the patient's past medical history: Yes Medical History: Reports:: Coronary Artery Disease, Depression, Gastroesophageal Reflux Disease(GERD), Hyperlipidemia, Hypertension, Migraine, Myocardial Infarction, Renal Disease *Have you ever received a pneumonia vaccine?: Yes *Have you received a flu vaccine this season?: No Other Medical History: Reports: Arthritis Other Surgeries: Yes: Angioplasty, Cardiac Catheterization, Cholecystectomy, Colonoscopy, Hysterectomy-Total, Other Amputation: No Fractures: No - *Social History Educational Level: Completed High School Smoking Status: Never smoker Alcohol Intake: never Alcohol Intake Frequency:: other Substance Use Type: denies use *Occupational Status:: disabled Housing: apartment Household Members: none *Travel in the last 8 weeks: None - Psychiatric History Pschychiatric History:: Reports:: Depression Family Hx:: Cancer, Heart Attack, Diabetes Review of Systems - Review of Systems Review of systems:: pertinent systems reviewed and negative unless documented below - Constitutional Reports malaise, Denies fever(s) - Eyes Denies change in vision - ENT Denies sore throat - *Cardiovascular Reports chest pain, Reports shortness of breath, Reports shortness of breath with activity - *Respiratory Reports cough, Reports shortness of breath, Reports pain on inspiration, Denies coughing up blood - *Gastrointestinal Denies abdominal pain, Denies black, tarry stools - *Genitourinary Denies blood in urine - *Musculoskeletal Denies joint pain - Integumentary/Breasts Denies rash - *Neurologic Denies frequent falls, Denies headache(s), Denies seizure-like activity - Psychiatric Denies depression Meds Home Medications Medication Instructions Recorded Confirmed Type ondansetron HCl 4 mg tablet 4 mg PO Q6H tab 11/03/17 11/08/19 History oxycodone 10 mg tablet 10 mg PO TID PRN #90 tab 10/21/19 11/08/19 Rx Aspirin [Aspirin 325mg Tab] 325 mg PO DAILY 11/08/19 11/09/19 History Atorvastatin Calcium [Atorvastatin 40 mg PO DAILY 11/08/19 11/09/19 History 40mg Tab] Cetirizine HCl [Zyrtec] 10 mg PO DAILY 11/08/19 11/09/19 History Clopidogrel Bisulfate [Plavix 75mg 75 mg PO DAILY 11/08/19 11/08/19 History Tab] Cyclobenzaprine HCl 10 mg PO TIDP PRN 11/08/19 11/09/19 History [Cyclobenzaprine 10mg Tab] Escitalopram Oxalate 20 mg PO DAILY 11/08/19 11/09/19 History Esomeprazole Magnesium 40 mg PO DAILY 11/08/19 11/09/19 History Fluticasone Propionate 50 mcg INTRANASAL ONCE 11/08/19 11/08/19 History Gabapentin [Neurontin 600mg 600 mg PO TID 11/08/19 11/08/19 History tablet] bisoproloL fumarate [Zebeta 5mg 5 mg PO DAILY 11/08/19 11/09/19 History tablet] Allergies Allergy/AdvReac Type Severity Reaction Status Date / Time Sulfa (Sulfonamide Allergy Unknown I-HIVES Verified 10/21/19 14:06 Antibiotics) [SULFA (SULFONAMIDE ANTIBIOTICS)] prednisone Allergy Anaphylaxis Verified 10/21/19 14:06 Exam Vital signs and Labs for Last 24 Hours: Temp Pulse Resp BP Pulse Ox 97.6 F 92 H 18 142/72 H 99 11/08/19 20:00 11/08/19 20:00 11/08/19 20:00 11/08/19 20:00 11/08/19 20:00 Laboratory Results - last 24 hr 11/08/19 13:35: Specimen Source L brachial, O2 % Room air, ABG pH 7.61 H*, ABG pCO2 15.1 L, ABG pO2 70.0 L, ABG HCO3 15.0 L, ABG Total CO2 15.4 L, ABG O2 Saturation 97, ABG Base Excess -6.4 L 11/08/19 13:45: WBC 9.1, RBC 4.50, Hgb 13.3, Hct 40.5, MCV 90.0, MCH 29.5, MCHC 32.8, RDW 14.6, Plt Count 268, MPV 8.5, Neut % (Auto) 78.5, Lymph % (Auto) 18.2, [place] % (Auto) 2.8, Eos % (Auto) 0.3, Baso % (Auto) 0.3, Neut # (Auto) 7.2, Lymph # (Auto) 1.7, [place] # (Auto) 0.3, Eos # (Auto) 0.0, Baso # (Auto) 0.0 11/08/19 13:45: Sodium 139, Potassium 3.0 L, Chloride 101, Carbon Dioxide 19 L, Anion Gap 22.0 H, BUN 16, Creatinine 1.41 H, Estimated Creat Clear 46, Estimated GFR 38 L, Est GFR ( Amer) 46 L, Glucose 118 H, Calcium 9.5, Total Bilirubin 0.3, AST 17, ALT 23, Alkaline Phosphatase 128 H, Troponin I < 0.02, C- Reactive Protein < 0.2, Total Protein 7.9, Albumin 4.4, Globulin 3.5 H, Albumin/Globulin Ratio 1.3 11/08/19 13:45: Lactate 3.1 H 11/08/19 13:45: B-Natriuretic Peptide 54 11/08/19 13:45: ESR 21 11/08/19 13:45: Chlamy pneumoniae PCR Not detected, Adenovirus (PCR) Not detected, B. pertussis DNA (PCR) Not detected, Coronavirus OC43 (PCR) Not detected, Coronavirus HKU1 (PCR) Not detected, Coronavirus 229E (PCR) Not detected, Coronavirus NL63 (PCR) Not detected, Human Metapneumovir PCR Detected A, Influenza A (H1) PCR Not detected, Influ A (H1N1/09) PCR Not detected, Influenza A (H3) PCR Not detected, Influenza Type A (PCR) Not detected, Influenza Type B (PCR) Not detected, M. pneumoniae (PCR) Not detected, Parainfluenza 1 (PCR) Not detected, Parainfluenza 2 (PCR) Not detected, Parainfluenza 3 (PCR) Not detected, Parainfluenza 4 (PCR) Not detected, RSV (PCR) Not detected, Entero/Rhino (PCR) Not detected 11/08/19 16:28: Troponin I < 0.02 11/08/19 18:04: Lactate 6.0 H 11/08/19 19:32: Troponin I < 0.02 I & O for Last 24 hours: Intake & Output 11/06/19 11/07/19 11/08/19 11/09/19 11:59 11:59 11:59 11:59 Intake Total 1050 / 1050 Balance 1050 / 1050 Weight 125 lb Microbiology Reports for the Last 24 Hours: Microbiology 11/08/19 15:05 Sputum - Expectorated Sputum Gram Stain - Final 11/08/19 15:05 Sputum - Expectorated Sputum Sputum Culture - Final - Constitutional no acute distress, average body habitus - *Routine HEENT Exam Head: Present: normocephalic Eye: Present: EOMI, PERRL ENT: Present: mucous membranes dry - *Routine Neck Exam Present: supple. Absent: JVD - *Routine Respiratory Exam Present: wheezes, crackles, distant breath sounds - *Routine Cardiovascular Exam Present: RRR, murmur, S4 - *Routine Abdominal Exam Present: soft - *Routine Extremities Exam Present: full ROM. Absent: calf tenderness - *Routine Skin Exam Present: intact - *Routine Neurological Exam Present: alert, oriented X3, CN II-XII intact - Routine Psychiatric Exam Present: anxious Assessment and Plan (1) Severe sepsis with acute organ dysfunction Current visit: Yes Status: Acute Category: Medical Code(s): A41.9 - Sepsis, unspecified organism; R65.20 - Severe sepsis without septic shock (2) Acute exacerbation of chronic obstructive airways disease Current visit: Yes Status: Acute Category: Medical Code(s): J44.1 - Chronic obstructive pulmonary disease with (acute) exacerbation (3) Hypokalemia Current visit: Yes Status: Acute Category: Medical Code(s): E87.6 - Hypokalemia (4) Renal insufficiency Current visit: Yes Status: Acute Category: Medical Code(s): N28.9 - Disorder of kidney and ureter, unspecified
--- NOTE | 2019-11-08 20:56 | Electrocardiograph Report ---
APPROVED REPORT Exam: Resting ECG HR:71 bpm ECG Measurements Heart Rate 71 AXES NC 156 P 92 QRSd 92 QRS 15 QT 438 T10 QTc 475 <Conclusion> Normal sinus rhythm ST & T wave abnormality, consider anterior ischemia Prolonged QT Abnormal ECG Electronically signed by : Barak Weaver, 11/08/2019 20:56:25
[2019-11-08 21:00] LABS: Anion Gap 20.4 mEq/L (5-15)
[2019-11-08 21:07] LABS: Calcium 7.8 mg/dL (8.5-10.1)
--- NOTE | 2019-11-09 00:32 | Sepsis Event Note ---
[facility] Tissue Perfusion Eval Sepsis Re-Evaluation Performed: Yes Date Performed: 11/09/19 Time Performed: 00:32
[2019-11-09 05:38] LABS: Basophils % 0.2 % (0.1-2.0); Eosinophils % 0.3 % (0.1-12.0); Hematocrit 34.4 % (37.0-47.0); Lymphocytes # 1.2 K/mm3 (0.7-4.5); Mean Corpuscular HGB Conc 33.1 g/dL (31.8-35.4); Mean Corpuscular Volume 91.1 fl (81-99); Monocytes # 0.2 K/mm3 (0.1-1.0); Monocytes % 2.3 % (1.7-9.3); Neutrophils # 6.3 K/mm3 (1.8-7.8); Neutrophils % 81.1 % (37.0-80.0); Platelet Count 249 K/mm3 (142-424); Red Blood Count 3.77 M/mm3 (4.20-5.40); Red Cell Distribution Width 14.7 % (11.5-17.5); White Blood Count 7.8 K/mm3 (4.8-10.8)
[2019-11-09 05:47] LABS: Anion Gap 19.1 mEq/L (5-15); Calcium 8.1 mg/dL (8.5-10.1); Chol/HDL Ratio 3.7 (1-3.5)
[2019-11-09 05:54] LABS: Hemoglobin 11.4 g/dL (12.2-16.2)
--- NOTE | 2019-11-09 07:28 | Pharmacy Consult Notes ---
[facility] Pharmacy VTE Monitoring - Patient Demographics Admission date: 11/09/19 Report Date: 11/09/19 Time: 07:27 Allergies/Adverse Reactions: Patient Allergies Sulfa (Sulfonamide Antibiotics) [SULFA (SULFONAMIDE ANTIBIOTICS)] Allergy (Unknown, Verified 10/21/19 14:06) I-HIVES prednisone Allergy (Verified 10/21/19 14:06) Anaphylaxis Height: 1.55 m Weight: 58.542 kg Patient Problems: Current Active Problems Acute dyspnea (Acute) Acute exacerbation of chronic obstructive airways disease (Acute) Failure of outpatient treatment (Acute) - VTE Risk Labs: VTE Related Lab Results Hgb 11.4 g/dL (12.2-16.2) L D 11/09/19 04:11 Hct 34.4 % (37.0-47.0) L 11/09/19 04:11 Plt Count 249 K/mm3 (142-424) 11/09/19 04:11 BUN 10 mg/dL (7-18) 11/09/19 04:11 Creatinine 1.22 mg/dL (0.55-1.02) H 11/09/19 04:11 Estimated Creat Clear 46 mL/min (50-200) 11/09/19 04:11 Was VTE Risk Assessment Performed: Yes VTE Risk Level: Moderate Risk Clinical Trial Participant: No - Prophylaxis VTE Prophylaxis Ordered?: Yes Types of VTE Prophylaxis: TEDS Knee High Location of Applied Device: Bilateral Lower Extremeties
--- NOTE | 2019-11-10 08:33 | Progress Note ---
Internal Medicine - PN: Subj *Date: 11/10/19 *Time: 08:31 Interval history: pt states she is up walking in room. coughing up yellow/green sputum Exam Vital signs and Labs for Last 24 Hours: Temp Pulse Resp BP Pulse Ox 98.1 F 84 19 105/74 L 98 11/10/19 07:55 11/10/19 07:55 11/10/19 07:55 11/10/19 07:55 11/10/19 07:55 Laboratory Results - last 24 hr 11/09/19 09:10: Lactate 2.0 I & O for Last 24 hours: Intake & Output 11/07/19 11/08/19 11/09/19 11/10/19 11:59 11:59 11:59 11:59 Intake Total 3429 / 3429 5294 / 5294 Output Total 5240 / 5240 Balance 3429 / 3429 54 / 54 Weight 129 lb 1 oz 127 lb 1 oz - Constitutional no acute distress - *Routine HEENT Exam Head: Present: normocephalic Eye: Present: PERRL ENT: Present: mucous membranes moist - *Routine Neck Exam Present: supple. Absent: lymphadenopathy - *Routine Respiratory Exam Present: wheezes - *Routine Cardiovascular Exam Present: RRR - *Routine Abdominal Exam Present: soft, normoactive bowel sounds. Absent: tenderness - *Routine Extremities Exam Present: full ROM. Absent: cyanosis, clubbing, edema - *Routine Skin Exam Present: warm. Absent: rash - *Routine Neurological Exam Present: alert, oriented X3 - Routine Psychiatric Exam Present: normal affect Assessment and Plan (1) Severe sepsis with acute organ dysfunction Current visit: Yes Status: Acute Category: Medical Code(s): A41.9 - Sepsis, unspecified organism; R65.20 - Severe sepsis without septic shock (2) Acute exacerbation of chronic obstructive airways disease Current visit: Yes Status: Acute Category: Medical Code(s): J44.1 - Chronic obstructive pulmonary disease with (acute) exacerbation (3) Hypokalemia Current visit: Yes Status: Acute Category: Medical Code(s): E87.6 - Hypokalemia (4) Renal insufficiency Current visit: Yes Status: Acute Category: Medical Code(s): N28.9 - Disorder of kidney and ureter, unspecified - Assessment and plan all Dx Assessment and Plan for all problems:: rounded with dr pritchard, all orders per francheska change nebs to scheduled lock iv up in room poss dc in am
--- NOTE | 2019-11-10 09:42 | Progress Note ---
Internal Medicine - PN: Subj *Date: 11/09/19 *Time: 08:45 Interval history: 59 YOF sitting up in bed, she reports she is feeling better this AM and less SOA. Exam Vital signs and Labs for Last 24 Hours: Temp Pulse Resp BP Pulse Ox 98.1 F 84 19 105/74 L 98 11/10/19 07:55 11/10/19 07:55 11/10/19 07:55 11/10/19 07:55 11/10/19 07:55 Laboratory Results - last 24 hr 11/09/19 09:10: Lactate 2.0 I & O for Last 24 hours: Intake & Output 11/07/19 11/08/19 11/09/19 11/10/19 23:59 23:59 23:59 23:59 Intake Total 1050 / 1050 6238 / 6238 1435 / 1435 Output Total 4440 / 5240 1100 / 1100 Balance 1050 / 1050 1798 / 998 335 / 335 Weight 125 lb 129 lb 1.008 oz 127 lb 1 oz - Constitutional no acute distress - *Routine HEENT Exam Head: Present: normocephalic, atraumatic. Absent: tenderness of temporal artery Eye: Present: EOMI, PERRL, normal accommodation. Absent: periorbital tenderness ENT: Present: mucous membranes moist - *Routine Neck Exam Present: full ROM, trachea midline. Absent: JVD - *Routine Respiratory Exam Present: wheezes, crackles - *Routine Cardiovascular Exam Present: RRR, murmur - *Routine Abdominal Exam Present: soft, normoactive bowel sounds. Absent: tenderness, firm - *Routine Extremities Exam Present: full ROM. Absent: calf tenderness - Routine Back/Spine/Pelvis Exam Back/Spine: Present: full ROM. Absent: CVA tenderness - *Routine Skin Exam Present: intact, warm. Absent: erythema - *Routine Neurological Exam Present: alert, oriented X3, CN II-XII intact. Absent: altered mental status - Routine Psychiatric Exam Present: normal affect, normal thought process. Absent: agitated Assessment and Plan (1) Severe sepsis with acute organ dysfunction Current visit: Yes Status: Acute Category: Medical Code(s): A41.9 - Sepsis, unspecified organism; R65.20 - Severe sepsis without septic shock (2) Acute exacerbation of chronic obstructive airways disease Current visit: Yes Status: Acute Category: Medical Code(s): J44.1 - Chronic obstructive pulmonary disease with (acute) exacerbation (3) Hypokalemia Current visit: Yes Status: Acute Category: Medical Code(s): E87.6 - Hypokalemia (4) Renal insufficiency Current visit: Yes Status: Acute Category: Medical Code(s): N28.9 - Disorder of kidney and ureter, unspecified - Assessment and plan all Dx Assessment and Plan for all problems:: Rounded w/ Dr. Hernandez, all orders per Dr. Hernandez 1. Lasix 40mg IVP x 1 2. [place]-Nebs 3. Recollect Sputum
--- NOTE | 2019-11-10 12:43 | Cardiology Report ---
APPROVED REPORT EXAM: Comprehensive 2D, Doppler, and color-flow Echocardiogram [place] Sawyer: Miriam Neumann CRT Ht: 5 ft 1 in Wt: 125lbs BSA: 1.55 BP: 142/72 mmHg Indications: MURMUR, HTN, HLD, CAD, GERD, OLD AL, ANGIOPLASTY, MURMUR, HTN, HLD 2D Dimensions LVOT 1.70 cm (M/F) 1.5-2.5 M-Mode Dimensions RVDd 2.61 cm (0.9-2.6)LVDd 4.81 cm (3.5-5.7) LVDs 2.58 cm (3.5-5.7)IVSd 0.93 cm (0.6-1.1) PWd 0.41 cm (0.6-1.1)EF (Teich) 77.70% FS 46.40% EDV (Teich) 108.00 mL ESV (Teich) 24.10 mL LV Diastology E/A Ratio 0.72 Mitral Valve MV A Velocity 98.00 (40-130 cm/s) Left Ventricle Left atrium is mildly enlarged, left ventricle is normal size, there is no concentric left ventricular hypertrophy, visually estimated ejection fraction 50% with moderate inferior basal wall hypokinesis. Grade 1 diastolic dysfunction seen without tissue Doppler evidence of raise left atrial pressure. Right Ventricle Right atrium and right ventricular normal size and contractility. Aortic Valve Aortic valve is thickened and calcified leaflet chordae display good mobility, there is no aortic stenosis or aortic insufficiency. Mitral Valve Mitral valve is grossly normal, there is mild mitral regurgitation. Tricuspid Valve Tricuspid valve is grossly normal, there is mild tricuspid regurgitation, tricuspid regurgitation jet velocity is inadequate for calculation of the right ventricular systolic pressure. Pulmonic Valve Pulmonic valve is poorly visualized. Great Vessels Aortic root is normal size. Pericardium No significant pericardial effusion noted. Conclusion 1. Normal left ventricular size, preserved left ventricular systolic function, visually estimated ejection fraction 50% with segmental wall motion abnormality described above, grade 1 diastolic dysfunction seen without tissue Doppler evidence of raise left atrial pressure. 2. Mild mitral and tricuspid regurgitation. 3. No significant pericardial effusion noted. Electronically signed by : True Shafer, 11/10/2019 12:43:10
[2019-11-11 08:19] LABS: Basophils % 0.2 % (0.1-2.0); Eosinophils # 0.1 K/mm3 (0.0-0.4); Eosinophils % 0.7 % (0.1-12.0); Hemoglobin 11.8 g/dL (12.2-16.2); Lymphocytes # 1.1 K/mm3 (0.7-4.5); Lymphocytes % 8.7 % (10-50); Mean Corpuscular HGB Conc 32.8 g/dL (31.8-35.4); Mean Corpuscular Volume 89.5 fl (81-99); Mean Platelet Volume 8.4 fl (7.4-10.4); Monocytes # 0.4 K/mm3 (0.1-1.0); Neutrophils # 10.6 K/mm3 (1.8-7.8); Neutrophils % 87.3 % (37.0-80.0); Platelet Count 326 K/mm3 (142-424); Red Blood Count 4.02 M/mm3 (4.20-5.40); Red Cell Distribution Width 14.4 % (11.5-17.5); White Blood Count 12.2 K/mm3 (4.8-10.8)
[2019-11-11 08:40] LABS: Anion Gap 18.2 mEq/L (5-15); Calcium 8.7 mg/dL (8.5-10.1)
--- NOTE | 2019-11-11 08:53 | Discharge Summary ---
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 He states she has been sick for more than a week. She had been to the emergency department at outside hospital and was prescribed prednisone along with antibiotics which she took for the whole course. Today was her last day of the antibiotics. She states her symptoms has not gotten better. She started getting worse today. She is still wheezing extensively and feels short of breath. Patient was referred from the outpatient clinic to the emergency department due to her shortness of breath. She denies having fever or chills. Denies having nausea or vomiting. Denies having any acute chest pain. He does not smoke. She states she has history of congestive heart failure she has not been on any breathing treatment so far. She was prescribed prednisone along with azithromycin for the last 1 week or so. There is no exacerbating or relieving factors. pt was admitted Hospital Course Hospital Course: pt has had slow but steady improvement with ivf and abx with pulmonary treatments and steroids - she has improved bs but still wheezing and has tolerated diet and ambulation - still weak and labs still above baseline - discussed with pt and wishes to try at home - Objective Vital signs: Temp Pulse Resp BP Pulse Ox 97.7 F 93 H 16 137/87 98 11/11/19 04:00 11/11/19 08:35 11/11/19 04:00 11/11/19 04:00 11/11/19 06:08 no acute distress - *Routine HEENT Exam Head: Present: normocephalic Eye: Present: EOMI, PERRL ENT: Present: mucous membranes dry - *Routine Neck Exam Present: supple. Absent: JVD - *Routine Respiratory Exam Present: wheezes. Absent: respiratory distress - *Routine Cardiovascular Exam Present: RRR. Absent: murmur, rubs - *Routine Abdominal Exam Present: soft - *Routine Extremities Exam Absent: calf tenderness - *Routine Skin Exam Present: intact - *Routine Neurological Exam Present: alert, oriented X3, CN II-XII intact - Routine Psychiatric Exam Present: normal affect Results Labs on day of discharge: Labs from last 24 hours 11/11/19 11/11/19 08:00 08:00 WBC 12.2 H D RBC 4.02 L Hgb 11.8 L Hct 36.0 L MCV 89.5 MCH 29.4 MCHC 32.8 RDW 14.4 Plt Count 326 D MPV 8.4 Neut % (Auto) 87.3 H Lymph % (Auto) 8.7 L Kidder % (Auto) 3.0 Eos % (Auto) 0.7 Baso % (Auto) 0.2 Neut # (Auto) 10.6 H Lymph # (Auto) 1.1 Kidder # (Auto) 0.4 Eos # (Auto) 0.1 Baso # (Auto) 0.0 Sodium 135 L Potassium 3.2 L Chloride 98 Carbon Dioxide 22 D Anion Gap 18.2 H BUN 14 D Creatinine 1.44 H Estimated Creat Clear 39 Estimated GFR 37 L Est GFR ( Amer) 45 L Glucose 272 H Calcium 8.7 Preliminary micro results at discharge 11/08/19 13:45 Blood Culture - Preliminary Blood NO GROWTH AFTER 48 HOURS 11/08/19 13:45 Blood Culture - Preliminary Blood NO GROWTH AFTER 48 HOURS DS: Diagnosis - Discharge Diagnosis (1) Severe sepsis with acute organ dysfunction Status: Acute (2) Acute exacerbation of chronic obstructive airways disease Status: Acute (3) Hypokalemia Status: Acute (4) Renal insufficiency Status: Acute (5) Viral pneumonitis Status: Acute Discharge Plan - Patient Discharge Instructions ACTIVITY: Continue current activity DIET: continue same diet Patient Instructions: DI for Chronic Obstructive Pulmonary Disease, DI for Sepsis -- Adult - Follow up Plan Disposition: Home, Self-Jail Medications: Home Medications Medication Instructions Recorded Confirmed Type ondansetron HCl 4 mg tablet 4 mg PO Q6H tab 11/03/17 11/08/19 History oxycodone 10 mg tablet 10 mg PO TID PRN #90 tab 10/21/19 11/08/19 Rx Aspirin [Aspirin 325mg Tab] 325 mg PO DAILY 11/08/19 11/09/19 History Atorvastatin Calcium [Atorvastatin 40 mg PO DAILY 11/08/19 11/09/19 History 40mg Tab] Cetirizine HCl [Zyrtec] 10 mg PO DAILY 11/08/19 11/09/19 History Clopidogrel Bisulfate [Plavix 75mg 75 mg PO DAILY 11/08/19 11/08/19 History Tab] Cyclobenzaprine HCl 10 mg PO TIDP PRN 11/08/19 11/09/19 History [Cyclobenzaprine 10mg Tab] Escitalopram Oxalate 20 mg PO DAILY 11/08/19 11/09/19 History Esomeprazole Magnesium 40 mg PO DAILY 11/08/19 11/09/19 History Fluticasone Propionate 50 mcg INTRANASAL ONCE 11/08/19 11/08/19 History Gabapentin [Neurontin 600mg 600 mg PO TID 11/08/19 11/08/19 History tablet] bisoproloL fumarate [Zebeta 5mg 5 mg PO DAILY 11/08/19 11/09/19 History tablet] Benzonatate [Tessalon Perle 100mg 100 mg PO TID #30 cap 11/11/19 Rx Cap] Budesonide/Formoterol Fumarate 2 puffs IH BID #1 inh 11/11/19 Rx [Symbicort 80-4.5 Mcg Inhaler] levoFLOXacin [Levaquin 500mg 500 mg PO DAILY #7 tab 11/11/19 Rx tab] predniSONE [Prednisone 20mg 20 mg PO BID #10 tab 11/11/19 Rx Tab] Prescriptions/Medication Reconciliation: New predniSONE [Prednisone 20mg Tab] 20 mg PO BID #10 tab Benzonatate [Tessalon Perle 100mg Cap] 100 mg PO TID #30 cap levoFLOXacin [Levaquin 500mg tab] 500 mg PO DAILY #7 tab Budesonide/Formoterol Fumarate [Symbicort 80-4.5 Mcg Inhaler] 2 puffs IH BID #1 inh Continued ondansetron HCl 4 mg tablet 4 mg PO Q6H tab oxycodone 10 mg tablet 10 mg PO TID PRN #90 tab PRN Reason: pain Fluticasone Propionate 50 mcg INTRANASAL ONCE Escitalopram Oxalate 20 mg PO DAILY Cyclobenzaprine HCl [Cyclobenzaprine 10mg Tab] 10 mg PO TIDP PRN PRN Reason: MUSCLE SPASMS Clopidogrel Bisulfate [Plavix 75mg Tab] 75 mg PO DAILY Aspirin [Aspirin 325mg Tab] 325 mg PO DAILY Cetirizine HCl [Zyrtec] 10 mg PO DAILY bisoproloL fumarate [Zebeta 5mg tablet] 5 mg PO DAILY Gabapentin [Neurontin 600mg tablet] 600 mg PO TID Esomeprazole Magnesium 40 mg PO DAILY Atorvastatin Calcium [Atorvastatin 40mg Tab] 40 mg PO DAILY - Problem Reconciliation Problems Reviewed?: Yes
[2019-11-11 08:56] LABS: Lymphocytes % 16 % (10-50); Monocytes % 2 % (2-9); Neutrophils % 82 % (42-76); RBC Morphology Normal; Total Cells Counted 100
== END 2019-11-11 10:45 | disposition home or self-care (01) ==
LOC: 2ND 13:28 → ER 13:28 → 2ND 17:06
PROVIDERS: ADMIT Emergency Medicine; ATTEND Emergency Medicine
CPT/HCPCS: 36415; 71010; 71020; 71045; 71046; 80048; 80053; 80061; 82803; 83605; 83880; 84484; 85007; 85025; 85651; 86140; 87040; 87205; 87486; 87581; 87633; 87798; 93005; 93306; 94640; 94761; 96365; 96366; 96367; 96375; 99285; G0378; J0456

== ENCOUNTER → 2019-11-28 14:23 | Outpatient (CLI) | payer MEDICARE, MEDICAID, SELFPAY ==
--- NOTE | 2019-11-28 14:24 | MR_ITS ---
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 3-D MIP and myelographic images are also rendered and reviewed FINDINGS: The there is mild lumbar scoliosis convex left. There is normal alignment. The spinal cord ends at the L1-L2 level. The T12-L1, L1-L2, L2-L3, L3-L4 have an unremarkable appearance. There is minimal bulging disc at L4-5 which is slightly eccentric to the right with mild right-sided foraminal narrowing. This is not significantly changed. L5-S1: Unremarkable. No disc herniation or canal stenosis is evident. Incidental note is made a 5.3 cm left renal cyst. The right kidney is not visualized in its normal location. IMPRESSION: 1. No disc herniation or canal stenosis. 2. Mild bulging disc at L4-5 slightly eccentric to the right with mild right-sided foraminal narrowing not significantly changed. 3. 5 cm left renal cyst. 4. The right kidney is not visualized in its normal location. Dictated by: Dmitry Franz MD 11/29/2019 11:16 Electronically signed by Dmitry Franz MD in [place] 11/29/2019 11:16
== END ==
PROVIDERS: PCP Emergency Medicine; Visit Provider Emergency Medicine
DX: M54.16 Radiculopathy, lumbar region (principal); M54.5 Low back pain; M79.604 Pain in right leg; R20.0 Anesthesia of skin
CPT/HCPCS: 72148; 76376

== ENCOUNTER → 2021-01-09 18:56 | Outpatient (CLI) | payer MEDICARE, MEDICAID, SELFPAY ==
[2021-01-09 19:45] LABS: Amphetamine/Metha Screen,Urine Negative ng/ml (<1000)
[2021-01-09 19:46] LABS: Barbiturates Screen,Urine Negative ng/ml (<200); Benzodiazepines Screen,Urine Negative ng/ml (<200)
[2021-01-09 19:47] LABS: Cannabinoid Screen,Urine Positive ng/ml (<50)
[2021-01-09 19:48] LABS: Cocaine Screen,Urine Negative ng/ml (<300); Methadone Screen,Urine Negative ng/ml (<300)
[2021-01-09 19:49] LABS: Opiate Screen,Urine Negative ng/ml (<300)
[2021-01-09 19:50] LABS: Phencyclidine Screen,Urine Negative ng/ml (<25)
== END ==
PROVIDERS: Visit Provider Emergency Medicine
DX: M54.16 Radiculopathy, lumbar region (principal)
CPT/HCPCS: 80305

== ENCOUNTER → 2021-03-06 18:15 | Outpatient (CLI) | payer MEDICARE, MEDICAID, SELFPAY ==
[2021-03-06 18:51] LABS: Barbiturates Screen,Urine Negative ng/ml (<200)
[2021-03-06 18:52] LABS: Benzodiazepines Screen,Urine Negative ng/ml (<200)
[2021-03-06 18:53] LABS: Amphetamine/Metha Screen,Urine Negative ng/ml (<1000); Cannabinoid Screen,Urine Positive ng/ml (<50)
[2021-03-06 18:54] LABS: Cocaine Screen,Urine Negative ng/ml (<300)
[2021-03-06 18:55] LABS: Methadone Screen,Urine Negative ng/ml (<300); Opiate Screen,Urine Negative ng/ml (<300)
[2021-03-06 18:56] LABS: Phencyclidine Screen,Urine Negative ng/ml (<25)
== END ==
PROVIDERS: Visit Provider Emergency Medicine
DX: M54.16 Radiculopathy, lumbar region (principal)
CPT/HCPCS: 80305

== ENCOUNTER → 2021-05-01 17:54 | Outpatient (CLI) | payer MEDICARE, MEDICAID, SELFPAY ==
[2021-05-01 20:00] LABS: Amphetamine/Metha Screen,Urine Negative ng/ml (<1000); Barbiturates Screen,Urine Negative ng/ml (<200)
[2021-05-01 20:01] LABS: Benzodiazepines Screen,Urine Negative ng/ml (<200)
[2021-05-01 20:02] LABS: Cannabinoid Screen,Urine Positive ng/ml (<50); Cocaine Screen,Urine Negative ng/ml (<300)
[2021-05-01 20:03] LABS: Methadone Screen,Urine Negative ng/ml (<300)
[2021-05-01 20:04] LABS: Opiate Screen,Urine Positive ng/ml (<300); Phencyclidine Screen,Urine Negative ng/ml (<25)
== END ==
PROVIDERS: Visit Provider Emergency Medicine
DX: M54.16 Radiculopathy, lumbar region (principal)
CPT/HCPCS: 80305

== ENCOUNTER → 2021-05-03 13:57 | Outpatient (CLI) | payer MEDICARE, MEDICAID, SELFPAY ==
--- NOTE | 2021-05-03 13:57 | CT_ITS ---
PROCEDURE: CT ABDOMEN PELVIS WO CON CLINICAL INDICATION: stone protocol Lower pelvic pain, hematuria COMPARISON: No exams were available for comparison TECHNIQUE: Axial images obtained with sagittal and coronal reformats. All CT scans at the facility use one or more dose reduction, viz: automated exposure control, ma/kV adjustment per patient size (including targeted exams where dose is matched to indication, i.e. head), or iterative reconstruction technique. FINDINGS: LOWER THORAX: Nonspecific 4 mm subpleural opacity right middle lobe and left lower lobe. ABDOMEN & PELVIS: Prior cholecystectomy. There is mild nonspecific thickening of the distal esophagus. The liver, spleen, adrenal glands, and pancreas have an unremarkable appearance. There is mild prominence of the biliary tree. There has been a prior right nephrectomy. There is a 7 x 5.6 x 4.7 cm left renal cyst which appears benign. No renal or ureteral calculi. No hydronephrosis. No intestinal obstruction or free air. No evidence of appendicitis. There has been a prior hysterectomy. No evidence of diverticulitis. There are several small ventral abdominal wall hernias in the supraumbilical region containing mesenteric fat. None of the hernias contain bowel. No acute bony anomaly. IMPRESSION: Benign-appearing 7 cm left renal cyst. No renal calculi or hydronephrosis. Prior right nephrectomy. Several small ventral abdominal wall hernias which may be postsurgical containing fat all on the supraumbilical region. Dictated by: Dmitry Franz MD 05/03/2021 15:35 Dmitry Franz MD in [facility] 05/03/2021 15:35
--- NOTE | 2021-05-03 13:57 | MM_ITS ---
PROCEDURE INFORMATION: Exam: MG Screening 3D Mammography Exam date and time: 05/03/2021 1:57 PM Age: 61 years old Clinical indication: Encounter for screening mammogram for malignant neoplasm of breast TECHNIQUE: Imaging protocol: Screening tomosynthesis and 2D mammography including computer-aided detection (CAD) when performed. COMPARISON: 1. MG SCBI MM Dig screening mamm BI w/CAD 11/24/2018 10:40 AM 2. MG DMSB DIG MAMM-SCREEN EVI W/CAD 04/23/2017 3:48 PM FINDINGS: MAMMOGRAPHY: Breast composition: The breast tissue is heterogeneously dense, which may obscure small masses. Mass: None. Architectural distortion: None. Calcifications: No suspicious calcifications. Asymmetric density: None. Skin thickening: None. Axillary adenopathy: None. IMPRESSION: No mammographic evidence of malignancy. Annual screening is recommended unless otherwise clinically indicated. ASSESSMENT: BI-RADS Category 1: Negative
== END ==
PROVIDERS: PCP Emergency Medicine; Visit Provider Emergency Medicine
DX: Z12.31 Encounter for screening mammogram for malignant neoplasm of breast (principal); R10.9 Unspecified abdominal pain; R31.9 Hematuria, unspecified
CPT/HCPCS: 74176; 77063; 77067

== ENCOUNTER → 2021-06-28 14:53 | Outpatient (CLI) | payer MEDICARE, MEDICAID, SELFPAY ==
[2021-06-28 15:01] LABS: MANUAL DIFFERENTIAL MANUAL DIFFERENTIAL (MANUAL DIFF)
--- NOTE | 2021-06-28 15:18 | XR_ITS ---
PROCEDURE: XR HAND LT MIN 3V CLINICAL INDICATION: Hand Pain L COMPARISON: No exams were available for comparison FINDINGS: Nondisplaced fracture involves the distal aspect of the 5th metacarpal at the metaphyseal diaphyseal junction with minimal impaction of the fracture fragments. No obvious intra-articular involvement. The joint spaces are well-preserved. No significant degenerative/arthritic changes. No erosive changes evident. Other findings:None. IMPRESSION: Nondisplaced distal 5th metacarpal fracture Dictated by: Dmitry Franz MD 06/28/2021 15:36 Dmitry Franz MD in [place] 06/28/2021 15:36
--- NOTE | 2021-06-28 15:19 | XR_ITS ---
PROCEDURE: XR CHEST 2V CLINICAL HISTORY: dyspnea COMPARISON: CR XR CHEST 2V from 11/08/2019 CR XR CHEST PORTABLE from 11/08/2019 DX XR CHEST 2V from 11/10/2019 FINDINGS: The cardiomediastinal silhouette and pulmonary vascularity are within normal limits. The lungs are clear without infiltrates, suspicious nodules, or pleural effusions. There is evidence of old granulomatous disease. Mild lumbar scoliosis convex left and lower thoracic scoliosis convex right. IMPRESSION: No acute findings. Dictated by: Dmitry Franz MD 06/28/2021 15:35 Dmitry Franz MD in [place] 06/28/2021 15:35
[2021-06-28 15:25] LABS: Basophils # 0.1 K/mm3 (0-0.2); Basophils % 0.8 % (0.1-2.0); Hemoglobin 12.1 g/dL (12.2-16.2); Lymphocytes # 2.5 K/mm3 (0.7-4.5); Lymphocytes % 33.3 % (10-50); Mean Corpuscular HGB Conc 32.5 g/dL (31.8-35.4); Mean Corpuscular Hemoglobin 30.2 pg (27.0-31.2); Mean Corpuscular Volume 92.8 fl (81-99); Mean Platelet Volume 8.2 fl (7.4-10.4); Monocytes # 0.3 K/mm3 (0.1-1.0); Monocytes % 3.7 % (1.7-9.3); Neutrophils # 3.7 K/mm3 (1.8-7.8); Neutrophils % 49.3 % (37.0-80.0); Platelet Count 313 K/mm3 (142-424); Red Blood Count 3.99 M/mm3 (4.20-5.40); Red Cell Distribution Width 15.1 % (11.5-17.5); White Blood Count 7.5 K/mm3 (4.8-10.8)
[2021-06-28 15:54] LABS: Microalbumin < 6.000 mg/L (0-16.7)
[2021-06-28 16:06] LABS: Activated Partial Thrombo Time 22.8 seconds (22.8-30.6)
[2021-06-28 16:50] LABS: INR 0.84 (0.9-1.1)
[2021-06-28 16:52] LABS: Hemoglobin A1C 6.2 % (4.0-6.0)
[2021-06-28 17:10] LABS: Blood Urea Nitrogen 7 mg/dl (7-17); Estimated Glomerular Filt Rate 56 ml/min (>60); GFR (African American) 68 ML/MIN (>60)
[2021-06-28 17:10] LABS: Alanine Aminotransferase 16 U/L (12-78); Albumin Level 4.3 g/dl (3.5-5.0); Albumin/Globulin Ratio 1.7 (1.1-1.8); Alkaline Phosphatase 123 U/L (38-126); Anion Gap 14.5 mEq/L (5-15); Aspartate Amino Transferase 27 U/L (14-36); Bilirubin,Total 0.2 mg/dl (0.2-1.3); Blood Urea Nitrogen 7 mg/dl (7-17); Calcium 8.9 mg/dl (8.4-10.2); Carbon Dioxide 28 mmol/L (22.0-30.0); Chloride 101 mmol/L (98-107); Cholesterol 159 mg/dl (140-200); Estimated Glomerular Filt Rate 64 ml/min (>60); GFR (African American) 77 ML/MIN (>60); Globulin 2.5 g/dL (1.3-3.2); Glucose 75 mg/dl (74-100); HDL Cholesterol 40 mg/dl (40-60); Potassium 4.5 mmoL/L (3.5-5.1); Sodium 139 mmol/L (136-145); Total Protein,Serum 6.8 g/dl (6.3-8.2); Triglycerides 286 mg/dl (30-150); VLDL Cholesterol 57 mg/dL (0-40)
[2021-06-28 17:20] LABS: Direct LDL Cholesterol 73.18 mg/dL (100-129)
[2021-06-28 18:10] LABS: Eosinophils % 11 % (0-3); Lymphocytes % 31 % (10-50); Monocytes % 5 % (2-9); Neutrophils % 53 % (42-76); Platelet Estimate Normal; RBC Morphology Normal; Total Cells Counted 100
[2021-06-28 19:08] LABS: Amphetamine/Metha Screen,Urine Negative ng/ml (<1000)
[2021-06-28 19:09] LABS: Barbiturates Screen,Urine Negative ng/ml (<200)
[2021-06-28 19:10] LABS: Benzodiazepines Screen,Urine Negative ng/ml (<200); Cannabinoid Screen,Urine Positive ng/ml (<50)
[2021-06-28 19:11] LABS: Cocaine Screen,Urine Negative ng/ml (<300)
[2021-06-28 19:12] LABS: Methadone Screen,Urine Negative ng/ml (<300); Opiate Screen,Urine Negative ng/ml (<300)
[2021-06-28 19:14] LABS: Phencyclidine Screen,Urine Negative ng/ml (<25)
== END ==
PROVIDERS: Urology; Visit Provider Emergency Medicine
DX: E78.5 Hyperlipidemia, unspecified (principal); I10 Essential (primary) hypertension; Z86.39 Personal history of other endocrine, nutritional and metabolic disease; A41.9 Sepsis, unspecified organism; N28.1 Cyst of kidney, acquired; R65.20 Severe sepsis without septic shock; M79.642 Pain in left hand; R06.00 Dyspnea, unspecified; M54.16 Radiculopathy, lumbar region
CPT/HCPCS: 36415; 71046; 73130; 80053; 80061; 80305; 82043; 82565; 83036; 84520; 85007; 85014; 85018; 85048; 85049; 85610; 85730

== ENCOUNTER → 2021-07-17 16:48 | Outpatient (CLI) | payer MEDICARE, MEDICAID, SELFPAY ==
--- NOTE | 2021-07-17 16:55 | XR_ITS ---
PROCEDURE: XR HAND LT MIN 3V CLINICAL INDICATION: lt 5TH mc FX, COMPARISON: CR XR HAND LT MIN 3V from 06/28/2021 FINDINGS: There is a healing 5th metacarpal fracture. Callus formation is developing. There is good alignment. There is minimal radial displacement of the head of the 5th metacarpal. IMPRESSION: Healing 5th metacarpal fracture Dictated by: Dmitry Franz MD 07/17/2021 17:02 Dmitry Franz MD in [facility] 07/17/2021 17:02
== END ==
PROVIDERS: PCP Emergency Medicine; Visit Provider Orthopaedic Surgery
DX: S62.307A Unspecified fracture of fifth metacarpal bone, left hand, initial encounter for closed fracture (principal)
CPT/HCPCS: 73130

== ENCOUNTER → 2021-10-23 17:15 | Outpatient (CLI) | payer MEDICARE, MEDICAID, SELFPAY ==
[2021-10-23 19:03] LABS: Amphetamine/Metha Screen,Urine Negative ng/ml (<1000)
[2021-10-23 19:04] LABS: Barbiturates Screen,Urine Negative ng/ml (<200); Benzodiazepines Screen,Urine Negative ng/ml (<200)
[2021-10-23 19:05] LABS: Cannabinoid Screen,Urine Positive ng/ml (<50)
[2021-10-23 19:06] LABS: Cocaine Screen,Urine Negative ng/ml (<300); Methadone Screen,Urine Negative ng/ml (<300)
[2021-10-23 19:07] LABS: Opiate Screen,Urine Negative ng/ml (<300); Phencyclidine Screen,Urine Negative ng/ml (<25)
== END ==
PROVIDERS: Visit Provider Emergency Medicine
DX: M54.16 Radiculopathy, lumbar region (principal)
CPT/HCPCS: 80305

== ENCOUNTER → 2022-02-14 08:28 | Outpatient (CLI) | payer MEDICARE, MEDICAID, SELFPAY ==
[2022-02-14 19:06] LABS: Amphetamine/Metha Screen,Urine Negative ng/ml (<1000); Barbiturates Screen,Urine Negative ng/ml (<200)
[2022-02-14 19:07] LABS: Benzodiazepines Screen,Urine Negative ng/ml (<200)
[2022-02-14 19:08] LABS: Cannabinoid Screen,Urine Positive ng/ml (<50); Cocaine Screen,Urine Negative ng/ml (<300)
[2022-02-14 19:09] LABS: Methadone Screen,Urine Negative ng/ml (<300)
[2022-02-14 19:10] LABS: Opiate Screen,Urine Negative ng/ml (<300); Phencyclidine Screen,Urine Negative ng/ml (<25)
== END ==
PROVIDERS: Visit Provider Emergency Medicine
DX: M54.16 Radiculopathy, lumbar region (principal)
CPT/HCPCS: 80305

== ENCOUNTER → 2022-04-15 06:58 | Outpatient (CLI) | payer MEDICARE, MEDICAID, SELFPAY ==
[2022-04-14 18:03] LABS: Barbiturates Screen,Urine Negative ng/ml (<200)
[2022-04-14 18:04] LABS: Amphetamine/Metha Screen,Urine Negative ng/ml (<1000); Benzodiazepines Screen,Urine Negative ng/ml (<200)
[2022-04-14 18:05] LABS: Cannabinoid Screen,Urine Positive ng/ml (<50)
[2022-04-14 18:06] LABS: Cocaine Screen,Urine Negative ng/ml (<300); Methadone Screen,Urine Negative ng/ml (<300)
[2022-04-14 18:07] LABS: Opiate Screen,Urine Negative ng/ml (<300)
[2022-04-14 18:08] LABS: Phencyclidine Screen,Urine Negative ng/ml (<25)
== END ==
PROVIDERS: PCP Emergency Medicine; Visit Provider Emergency Medicine
DX: M54.16 Radiculopathy, lumbar region (principal)
CPT/HCPCS: 80305

== ENCOUNTER → 2022-06-10 06:51 | Outpatient (CLI) | payer MEDICARE, MEDICAID, SELFPAY ==
[2022-06-10 20:42] LABS: Amphetamine/Metha Screen,Urine Negative ng/ml (<1000)
[2022-06-10 20:43] LABS: Barbiturates Screen,Urine Negative ng/ml (<200)
[2022-06-10 20:45] LABS: Benzodiazepines Screen,Urine Negative ng/ml (<200)
[2022-06-10 20:46] LABS: Cannabinoid Screen,Urine Positive ng/ml (<50); Cocaine Screen,Urine Negative ng/ml (<300)
[2022-06-10 20:47] LABS: Methadone Screen,Urine Negative ng/ml (<300)
[2022-06-10 20:48] LABS: Opiate Screen,Urine Negative ng/ml (<300); Phencyclidine Screen,Urine Negative ng/ml (<25)
== END ==
PROVIDERS: PCP Emergency Medicine; Visit Provider Emergency Medicine
DX: M54.16 Radiculopathy, lumbar region (principal)
CPT/HCPCS: 80305

== ENCOUNTER → 2022-08-06 13:00 | Outpatient (CLI) | payer MEDICARE, MEDICAID, SELFPAY ==
[2022-08-06 19:35] LABS: Amphetamine/Metha Screen,Urine Negative ng/ml (<1000); Barbiturates Screen,Urine Negative ng/ml (<200)
[2022-08-06 19:37] LABS: Cocaine Screen,Urine Negative ng/ml (<300)
[2022-08-06 19:39] LABS: Methadone Screen,Urine Negative ng/ml (<300); Opiate Screen,Urine Negative ng/ml (<300)
[2022-08-06 19:40] LABS: Phencyclidine Screen,Urine Negative ng/ml (<25)
[2022-08-06 20:54] LABS: Benzodiazepines Screen,Urine Negative ng/ml (<200)
[2022-08-06 20:55] LABS: Cannabinoid Screen,Urine Positive ng/ml (<50)
== END ==
PROVIDERS: PCP Emergency Medicine; Visit Provider Emergency Medicine
DX: M54.9 Dorsalgia, unspecified (principal); M54.16 Radiculopathy, lumbar region; Z79.899 Other long term (current) drug therapy; B95.2 Enterococcus as the cause of diseases classified elsewhere
CPT/HCPCS: 80305; 87086; 87088; 87186

== ENCOUNTER → 2022-10-03 13:45 | Outpatient (CLI) | payer MEDICARE, MEDICAID, SELFPAY ==
[2022-10-03 20:11] LABS: Amphetamine/Metha Screen,Urine Negative ng/ml (<1000)
[2022-10-03 20:12] LABS: Barbiturates Screen,Urine Negative ng/ml (<200)
[2022-10-03 20:13] LABS: Benzodiazepines Screen,Urine Negative ng/ml (<200); Cannabinoid Screen,Urine Positive ng/ml (<50)
[2022-10-03 20:14] LABS: Cocaine Screen,Urine Negative ng/ml (<300)
[2022-10-03 20:15] LABS: Methadone Screen,Urine Negative ng/ml (<300); Opiate Screen,Urine Positive ng/ml (<300)
[2022-10-03 20:16] LABS: Phencyclidine Screen,Urine Negative ng/ml (<25)
== END ==
PROVIDERS: PCP Emergency Medicine; Visit Provider Emergency Medicine
DX: R82.90 Unspecified abnormal findings in urine (principal); M54.16 Radiculopathy, lumbar region; B95.1 Streptococcus, group B, as the cause of diseases classified elsewhere
CPT/HCPCS: 80305; 87086; 87186

== ENCOUNTER → 2022-12-02 12:02 | Outpatient (CLI) | payer MEDICARE, MEDICAID, SELFPAY ==
[2022-12-02 20:11] LABS: Barbiturates Screen,Urine Negative ng/ml (<200)
[2022-12-02 20:12] LABS: Amphetamine/Metha Screen,Urine Negative ng/ml (<1000); Benzodiazepines Screen,Urine Negative ng/ml (<200)
[2022-12-02 20:13] LABS: Cannabinoid Screen,Urine Positive ng/ml (<50); Cocaine Screen,Urine Negative ng/ml (<300)
[2022-12-02 20:14] LABS: Methadone Screen,Urine Negative ng/ml (<300)
[2022-12-02 20:15] LABS: Opiate Screen,Urine Positive ng/ml (<300); Phencyclidine Screen,Urine Negative ng/ml (<25)
== END ==
PROVIDERS: PCP Emergency Medicine; Visit Provider Emergency Medicine
DX: M54.16 Radiculopathy, lumbar region (principal)
CPT/HCPCS: 80305

== ENCOUNTER 2023-03-17 11:17 | Observation (INO) | payer MEDICARE, MEDICAID, SELFPAY ==
[2023-03-17] VITALS (15 sets, daily range): BP systolic 145–175; BP diastolic 75–109; PULSE 74–102; RESP 16–22; TEMP 36.6–37; O2SAT 95–100; BMI 22.6; BMI 22.7
--- NOTE | 2023-03-17 11:30 | HMH.EDSOB ---
Discharge Plan Disposition Condition: Good Chief Complaint: Shortness of Breath/Dyspnea Prescriptions Prescriptions: No Action gabapentin 600 mg tablet 600 mg PO TID Qty: 90 1RF oxycodone 10 mg tablet 10 mg PO TID PRN (Reason: pain) Qty: 90 0RF albuterol sulfate 2.5 mg /3 mL (0.083 %) solution for nebulization See Rx Instructions .ROUTE .COMPLEX Qty: 180 0RF Dose Instruction: USE 1 VIAL VIA NEBULIZER 3 TIMES A DAY NEEDED FOR SHORTNESS OF BREATH/WHEEZING Rx Instructions: USE 1 VIAL VIA NEBULIZER 3 TIMES A DAY NEEDED FOR SHORTNESS OF BREATH/WHEEZING budesonide-formoterol 80-4.5 mcg/actuation HFA aerosol inhaler See Rx Instructions .ROUTE .COMPLEX Qty: 10.2 0RF Dose Instruction: INHALE 2 PUFFS BY MOUTH 2 TIMES A DAY Rx Instructions: INHALE 2 PUFFS BY MOUTH 2 TIMES A DAY esomeprazole magnesium 40 mg capsule,delayed release(DR/EC) See Rx Instructions .ROUTE .COMPLEX Qty: 90 1RF Dose Instruction: TAKE ONE CAPSULE BY MOUTH ONCE A DAY FOR GERD Rx Instructions: TAKE ONE CAPSULE BY MOUTH ONCE A DAY FOR GERD bisoprolol fumarate 5 mg tablet See Rx Instructions .ROUTE .COMPLEX Qty: 90 1RF Dose Instruction: TAKE ONE TABLET BY MOUTH ONCE A DAY FOR BLOOD PRESSURE Rx Instructions: TAKE ONE TABLET BY MOUTH ONCE A DAY FOR BLOOD PRESSURE atorvastatin 40 mg tablet See Rx Instructions .ROUTE .COMPLEX Qty: 90 3RF Dose Instruction: TAKE ONE TABLET BY MOUTH ONCE A DAY FOR CHOLESTEROL Rx Instructions: TAKE ONE TABLET BY MOUTH ONCE A DAY FOR CHOLESTEROL escitalopram oxalate 20 mg tablet See Rx Instructions .ROUTE .COMPLEX Qty: 90 1RF Dose Instruction: TAKE ONE TABLET BY MOUTH ONCE A DAY Rx Instructions: TAKE ONE TABLET BY MOUTH ONCE A DAY prednisone 20 mg tablet See Rx Instructions .Route .COMPLEX Qty: 15 0RF Rx Instructions: Take 1 tablet twice daily for 5 days, then Take 1 tablet daily for 5 days; cyclobenzaprine 10 mg tablet See Rx Instructions .ROUTE .COMPLEX Qty: 90 0RF Dose Instruction: TAKE ONE TABLET BY MOUTH 3 TIMES A DAY Rx Instructions: TAKE ONE TABLET BY MOUTH 3 TIMES A DAY aspirin 325 MG tablet 325 mg PO DAILY Referrals Follow up/Referrals: Carlos Hernandez MD [Primary Care Provider] - See instructions Clinical Impressions Clinical Impression: Acute exacerbation of chronic obstructive pulmonary disease Discharge ED Provider: Margoth Ramirez Resp/SOB HPI General Chief Complaint: Shortness of Breath/Dyspnea Stated Complaint: Phy fever, congestion, SOA Time Seen by Provider: 03/17/23 11:31 Mode of Arrival: Wheelchair Source of Information: Patient Limitations: No Limitations Description of Symptoms (Recalled from ER Triage Doc. by RN): Pt reports SOA that began of last week. Reports non-productive cough, feels tight when breathing in lung area. Pt reports began on prednisone thursday of last week. Pt reports has taken 3 home covid tests all negative results. History of Present Illness Patient is a 62 year old female, hx COPD, not on home oxygen, presented to ER with c/o: SOB, productive cough with greenish sputum for a few days, getting progressively worse. Denies chest pain, fever, chills. Related Data Home Medications Medication Instructions Recorded Confirmed aspirin 325 mg tablet 325 mg PO DAILY [facility] 11/08/19 01/27/23 Previous Rx's Medication Instructions Recorded albuterol sulfate 2.5 mg/3 mL See Rx Instructions .Route 10/10/20 (0.083 %) solution for nebulization .COMPLEX #180 mL budesonide-formoterol HFA 80 See Rx Instructions .Route 09/19/21 mcg-4.5 mcg/actuation aerosol .COMPLEX #10.2 grams inhaler bisoprolol fumarate 5 mg tablet See Rx Instructions .Route 10/02/22 .COMPLEX #90 tabs esomeprazole magnesium 40 mg See Rx Instructions .Route 10/02/22 capsule,delayed release .COMPLEX #90 caps atorvastatin 40 mg table
--- NOTE | 2023-03-17 11:33 | PC.NURSE ---
CHRISTAL DUVAL at
--- NOTE | 2023-03-17 11:34 | PC.NURSE ---
keesha ribeiro at
--- NOTE | 2023-03-17 11:37 | XR_ITS ---
FINAL REPORT CLINICAL HISTORY: SOA, cough COMPARISON: 06/28/2021 FINDINGS: TWO-VIEW CHEST The heart size is normal. The mediastinum is normal. There is bronchial wall thickening consistent with bronchitis. There is mild scarring/fibrosis. There is dextroscoliosis of the thoracic spine. There is no pneumothorax. IMPRESSION: Bronchitis. Reviewed, Interpreted and Dictated by Soham Bynum III, MD Transcribed by Mary Childers Authenticated and [facility]
--- NOTE | 2023-03-17 11:43 | PC.NURSE ---
RESPIRATORY AT BEDSIDE
--- NOTE | 2023-03-17 11:44 | PC.NURSE ---
2nd set of Blood cultures sent to lab
[2023-03-17 11:45] LABS: Basophils % 0.2 % (0.1-2.0); Eosinophils % 0.3 % (0.1-12.0); Hematocrit 37.7 % (37.0-47.0); Hemoglobin 12.5 g/dL (12.2-16.2); Lymphocytes # 1.3 K/mm3 (0.7-4.5); Mean Corpuscular HGB Conc 33.2 g/dL (31.8-35.4); Mean Corpuscular Hemoglobin 29.7 pg (27.0-31.2); Mean Corpuscular Volume 89.4 fl (81-99); Mean Platelet Volume 8.4 fl (7.4-10.4); Monocytes # 0.4 K/mm3 (0.1-1.0); Monocytes % 3.6 % (1.7-9.3); Neutrophils # 9.6 K/mm3 (1.8-7.8); Neutrophils % 84.8 % (37.0-80.0); Platelet Count 330 K/mm3 (142-424); Red Blood Count 4.21 M/mm3 (4.20-5.40); Red Cell Distribution Width 14.9 % (11.5-17.5); White Blood Count 11.3 K/mm3 (4.8-10.8)
--- NOTE | 2023-03-17 11:46 | PC.NURSE ---
RT at BS
[2023-03-17 11:52] LABS: Alanine Aminotransferase 26 U/L (12-78); Albumin Level 4.6 g/dl (3.5-5.0); Albumin/Globulin Ratio 1.8 (1.1-1.8); Alkaline Phosphatase 120 U/L (38-126); Anion Gap 19.4 mEq/L (5-15); Aspartate Amino Transferase 36 U/L (14-36); Bilirubin,Total 0.4 mg/dl (0.2-1.3); Blood Urea Nitrogen 6 mg/dl (7-17); Calcium 9.2 mg/dl (8.4-10.2); Carbon Dioxide 22 mmol/L (22.0-30.0); Chloride 100 mmol/L (98-107); Creatinine Clearance Estimated 50 mL/min (50-200); Estimated Glomerular Filt Rate 63 ml/min (>60); GFR (African American) 77 ML/MIN (>60); Globulin 2.5 g/dL (1.3-3.2); Glucose 137 mg/dl (74-100); Potassium 3.4 mmoL/L (3.5-5.1); Sodium 138 mmol/L (136-145); Total Protein,Serum 7.1 g/dl (6.3-8.2)
--- NOTE | 2023-03-17 11:56 | PC.NURSE ---
pt return from CT
[2023-03-17 11:59] LABS: D-Dimer 1.09 ug/mL (0.0-0.5); Lactic Acid 2.9 mmol/L (0.7-2.1)
[2023-03-17 12:00] LABS: NT Pro Brain Natriuretic Pep. 504 pg/mL (0-125)
--- NOTE | 2023-03-17 12:00 | ECG_ITS ---
APPROVED REPORT Exam: Resting ECG HR:81 bpm ECG Measurements Heart Rate 81 AXES WA 151 P 52 QRSd 101 QRS 18 QT 388 T 17 QTc 425 Conclusion SINUS RHYTHM NORMAL ECG UNCONFIRMED REPORT Electronically signed by : Barak Weaver MD 03/17/2023 20:08:37
[2023-03-17 12:12] LABS: Magnesium 1.6 mg/dl (1.6-2.3)
--- NOTE | 2023-03-17 12:20 | PC.NURSE ---
rounded on pt no complaints at this time, gave pt a warm blanket tap lang at bedside
--- NOTE | 2023-03-17 12:42 | CT_ITS ---
FINAL REPORT TECHNIQUE: Then section axial CT images of the chest were obtained with contrast. Three-D reformatted images were also obtained.This study was performed with techniques to keep radiation doses as low as reasonably achievable (ALARA). Individualized dose reduction techniques using automated exposure control or adjustment of mA and/or kV according to the patient''s size were employed. CLINICAL HISTORY: elvated ddimer FINDINGS: Significant motion artifact limits sensitivity of the exam. There is no large or central pulmonary embolism identified. There is no evidence of thoracic aortic aneurysm or dissection. There is no evidence of mediastinal or hilar mass or adenopathy. There is no evidence of pulmonary mass or suspicious nodule. There is diffuse bronchial wall thickening consistent with bronchitis. Limited images of the upper abdomen show surgical clips in the right upper quadrant consistent with cholecystectomy. IMPRESSION: Limited exam with no large or central PE identified. Bronchial wall thickening consistent with bronchitis. Reviewed, Interpreted and Dictated by Soham Bynum III, MD Transcribed by Tresa Park Authenticated and [facility]
--- NOTE | 2023-03-17 13:05 | PC.NURSE ---
PT RETURNED FROM CT
--- NOTE | 2023-03-17 13:26 | PC.NURSE ---
ED MD AT BEDSIDE
--- NOTE | 2023-03-17 13:42 | PC.NURSE ---
rounded on pt is hurting relaying message to nurse taking care of pt, tap lang at bedside
[2023-03-17 14:05] LABS: Coronavirus 19, PCR Not Detected (NotDetected); Influenza A, PCR Not Detected (NotDetected); Influenza B, PCR Not Detected (NotDetected)
--- NOTE | 2023-03-17 14:20 | PC.NURSE ---
CARE MANAGEMENT NOTIFIED OF ADMISSION
[2023-03-17 14:40] LABS: Adenovirus,PCR Not Detected (NotDetected); Bordetella Pertussis Not Detected (NotDetected); Chlamydophila Pneumoniae, PCR Not Detected (NotDetected); Coronavirus 19, PCR Not Detected (NotDetected); Coronavirus 229E Not Detected (NotDetected); Coronavirus NL63 Not Detected (NotDetected); Coronavirus OC43 Not Detected (NotDetected); Coronovirus HKU1,PCR Not Detected (NotDetected); Human Metapneumovirus Not Detected (NotDetected); Influenza A, PCR Not Detected (NotDetected); Influenza AH1, 2009 Not Detected (NotDetected); Influenza AH1, PCR Not Detected (NotDetected); Influenza AH3,PCR Not Detected (NotDetected); Influenza B, PCR Not Detected (NotDetected); Mycoplasma Pneumoniae, PCR Not Detected (NotDetected); Parainfluenza 1, PCR Not Detected (NotDetected); Parainfluenza 2, PCR Not Detected (NotDetected); Parainfluenza 4, PCR Not Detected (NotDetected); Respiratory Syncytial Virus Not Detected (NotDetected); Rhinovirus/Enterovirus Not Detected (NotDetected)
--- NOTE | 2023-03-17 14:40 | PC.NURSE ---
rounded on pt has pain tell nurse taking care of pt, tap lang at bedside
--- NOTE | 2023-03-17 14:49 | EXP.HP ---
History of Present Illness *Admission Date: 03/17/23 *Reason for visit:: Shortness of breath *History of present illness: Ms. Verma is a 62-year-old female who presents with worsening shortness of breath and cough for the past week. Has not felt well since last Thursday per her report. Denies any larry fever but has been coughing which is mainly nonproductive. Feels short of breath with exertion. Does not smoke cigarettes. Does use inhalers, they have not been helping her with her symptoms lately. Denies any chest pain, syncope, nausea or vomiting. Feels fatigued and has had a hard time sleeping because of her dyspnea. Denies it being any worse when lying flat. Work-up in the ER with mild leukocytosis, elevated BNP. Chest imaging showing bronchitis. No oxygen requirement at this time. Given duration of symptoms, patient's sensation of dyspnea, ER consulted medicine for admission. Started on ceftriaxone. CT of chest reviewed, no PEs but does have finding of bronchitis. No focal pneumonia. Remained stable on room air on evaluation. Trace lower extremity edema. [facility] Disclaimer: The information contained in this section may have been updated after the patient was seen, as this information can be updated by other users. Medical History COPD (chronic obstructive pulmonary disease) Depression Hypertension Migraines Social History Smoking Status: Never smoker alcohol intake: never counseling provided: none substance use type: denies use current occupational status: disabled Travel in the last 8 weeks: None household members: none housing: apartment Review of Systems Review of Systems Review of systems (narrative): 14 point review of systems performed, pertinent positives and negatives as per HPI Meds Home Medications and Allergies Home Medications Medication Instructions Recorded Confirmed Type aspirin 325 mg tablet 325 mg PO DAILY [facility] 11/08/19 01/27/23 History albuterol sulfate 2.5 mg/3 mL See Rx Instructions .Route 10/10/20 01/27/23 Rx (0.083 %) solution for nebulization .COMPLEX #180 mL budesonide-formoterol HFA 80 See Rx Instructions .Route 09/19/21 01/27/23 Rx mcg-4.5 mcg/actuation aerosol .COMPLEX #10.2 grams inhaler bisoprolol fumarate 5 mg tablet See Rx Instructions .Route 10/02/22 01/27/23 Rx .COMPLEX #90 tabs esomeprazole magnesium 40 mg See Rx Instructions .Route 10/02/22 01/27/23 Rx capsule,delayed release .COMPLEX #90 caps atorvastatin 40 mg tablet See Rx Instructions .Route 12/29/22 01/27/23 Rx .COMPLEX #90 tabs escitalopram oxalate 20 mg tablet See Rx Instructions .Route 01/08/23 01/27/23 Rx .COMPLEX #90 tabs gabapentin 600 mg tablet 600 mg PO TID . #90 tabs 01/27/23 01/27/23 Rx oxycodone 10 mg tablet 10 mg PO TID PRN pain #90 tabs 01/27/23 01/27/23 Rx cyclobenzaprine 10 mg tablet See Rx Instructions .Route 03/13/23 Rx .COMPLEX #90 tabs prednisone 20 mg tablet See Rx Instructions .Route 03/13/23 Rx .COMPLEX #15 tabs New Prescriptions to Start Prescriptions: Allergies Allergy/AdvReac Type Severity Reaction Status Date / Time Sulfa (Sulfonamide Allergy Unknown I-HIVES Verified 01/27/23 14:11 Antibiotics) [SULFA (SULFONAMIDE ANTIBIOTICS)] Exam Data for Last 24 hours Vital signs and Labs for Last 24 Hours: Temp Pulse Resp BP Pulse Ox 98.0 F 74 18 162/93 H 99 03/17/23 11:17 03/17/23 14:00 03/17/23 11:17 03/17/23 14:00 03/17/23 14:00 Laboratory Results - last 24 hr 03/17/23 11:30: WBC 11.3 H, RBC 4.21, Hgb 12.5, Hct 37.7, MCV 89.4, MCH 29.7, MCHC 33.2, RDW 14.9, Plt Count 330, MPV 8.4, Neut % (Auto) 84.8 H, Lymph % (Auto) 11.0, [place] % (Auto) 3.6, Eos % (Auto) 0.3, Baso % (Auto) 0.2, Neut # (Auto) 9.6 H, Lymph # (Auto) 1.3, [place] # (Auto) 0.4, Eos # (Auto) 0.0, Baso # (Auto) 0.0 03/17/23 11:3
--- NOTE | 2023-03-17 14:56 | PC.NURSE ---
waiting territory sales consultant back from second floor to give report
--- NOTE | 2023-03-17 15:00 | PC.NURSE ---
report called to mitali ramos rn on second floor at this time
--- NOTE | 2023-03-17 15:15 | PC.NURSE ---
PT GOING UP FOR ADMISSION
[2023-03-17 15:38] LABS: Reflex Lactic Add Lactic Reflex
[2023-03-17 16:28] LABS: Parainfluenza 3, PCR Detected (NotDetected)
[2023-03-17 16:41] LABS: Lactic Acid Follow Up (RFLX 1) 4.1 mmol/L (0.7-2.1)
--- NOTE | 2023-03-17 17:44 | PC.NURSE ---
education provided at this time on use of IS, pt demonstrated proper use and verbalizes understanding
[2023-03-17 18:17] LABS: Reflex Lactic (2 hrs) Add Lactic Reflex
[2023-03-17 19:19] LABS: Lactic Acid Follow up (RFLX 2) 4.6 mmol/L (0.7-2.1)
[2023-03-18 04:00] VITALS: BP 106/66; PULSE 71; RESP 18; TEMP 36.7; O2SAT 97; BMI 22.6
--- NOTE | 2023-03-18 04:39 | PC.NURSE ---
NO ACUTE CHANGES THIS SHIFT. PT HAS HAD AN INTERMITTENT NON-PRODUCTIVE COUCH. SPUTUM CULTURE ORDER AND PT HAS BEEN EDUCATED ABOUT THE SPECIMEN CUP. C/O A HEADACHE X1 AND GIVEN PRN TYLENOL. PT HAS HAD GOOD URINE OUTPUT THIS SHIFT. VSS. CALL WHITE WITHIN REACH.
[2023-03-18 06:05] VITALS: PULSE 88; PULSE 89; RESP 20; O2SAT 97
[2023-03-18 06:51] LABS: Basophils % 0.2 % (0.1-2.0); Eosinophils % 0.1 % (0.1-12.0); Hematocrit 39.6 % (37.0-47.0); Hemoglobin 13.1 g/dL (12.2-16.2); Lymphocytes # 2.5 K/mm3 (0.7-4.5); Lymphocytes % 19.8 % (10-50); Mean Corpuscular HGB Conc 33.1 g/dL (31.8-35.4); Mean Corpuscular Volume 90.5 fl (81-99); Mean Platelet Volume 8.6 fl (7.4-10.4); Monocytes # 0.6 K/mm3 (0.1-1.0); Monocytes % 4.8 % (1.7-9.3); Neutrophils # 9.4 K/mm3 (1.8-7.8); Neutrophils % 75.1 % (37.0-80.0); Platelet Count 429 K/mm3 (142-424); Red Blood Count 4.38 M/mm3 (4.20-5.40); Red Cell Distribution Width 14.9 % (11.5-17.5); White Blood Count 12.5 K/mm3 (4.8-10.8)
[2023-03-18 06:55] LABS: Alanine Aminotransferase 30 U/L (12-78); Albumin Level 4.5 g/dl (3.5-5.0); Albumin/Globulin Ratio 1.7 (1.1-1.8); Alkaline Phosphatase 121 U/L (38-126); Anion Gap 20.9 mEq/L (5-15); Aspartate Amino Transferase 32 U/L (14-36); Bilirubin,Total 0.4 mg/dl (0.2-1.3); Blood Urea Nitrogen 9 mg/dl (7-17); Calcium 9.3 mg/dl (8.4-10.2); Carbon Dioxide 24 mmol/L (22.0-30.0); Chloride 95 mmol/L (98-107); Creatinine Clearance Estimated 50 mL/min (50-200); Estimated Glomerular Filt Rate 56 ml/min (>60); GFR (African American) 68 ML/MIN (>60); Globulin 2.6 g/dL (1.3-3.2); Glucose 132 mg/dl (74-100); Magnesium 1.9 mg/dl (1.6-2.3); Potassium 3.9 mmoL/L (3.5-5.1); Sodium 136 mmol/L (136-145); Total Protein,Serum 7.1 g/dl (6.3-8.2)
[2023-03-18 07:41] VITALS: BP 137/98; PULSE 93; RESP 18; TEMP 36.5; O2SAT 99
[2023-03-18 08:00] VITALS: O2SAT 99
--- NOTE | 2023-03-18 08:47 | HMH.PHAINT1 ---
Pharmacy Intervention Comments: HOME MEDICATION LIST VERIFIED BY LIST FROM OUTSIDE PHARMACY.
--- NOTE | 2023-03-18 09:45 | PC.NURSE ---
courtesy tech round: pt is in bathroom and will pull call light when finished.
--- NOTE | 2023-03-18 11:04 | EXP.DC.SUM ---
General Admission date:: 03/17/23 Discharge date: 03/18/23 HPI HPI HPI: Ms. Verma is a 62-year-old female who presents with worsening shortness of breath and cough for the past week. Has not felt well since last Thursday per her report. Denies any larry fever but has been coughing which is mainly nonproductive. Feels short of breath with exertion. Does not smoke cigarettes. Does use inhalers, they have not been helping her with her symptoms lately. Denies any chest pain, syncope, nausea or vomiting. Feels fatigued and has had a hard time sleeping because of her dyspnea. Denies it being any worse when lying flat. Work-up in the ER with mild leukocytosis, elevated BNP. Chest imaging showing bronchitis. No oxygen requirement at this time. Given duration of symptoms, patient's sensation of dyspnea, ER consulted medicine for admission. Started on ceftriaxone. CT of chest reviewed, no PEs but does have finding of bronchitis. No focal pneumonia. Remained stable on room air on evaluation. Trace lower extremity edema. Hospital Course Hospital Course Hospital Course: 60-year-old female admitted for shortness of breath not responding to outpatient treatment.? Started on breathing treatments and antibiotics. Respiratory panel obtained showing parainfluenza. Stable on room air during admission. Problems addressed as follows: Bronchitis COPD exacerbation -Saturations above 90% on room air. No oxygen requirement during admission. Started on ceftriaxone and azithromycin. Plan to complete course of azithromycin. Positive viral panel for parainfluenza. Will complete 5 days total of steroids with prednisone orally. Continue inhaler as needed. Recommend follow-up with PCP in 2 weeks. Medically stable for discharge home to continue symptomatic treatment and medication course as listed above. Counseled on typical time course resolution of her bronchitis given the known pathogen. Hypertension -Present on admission, continue home bisoprolol.? Continue aspirin and Lipitor for CAD. Lasix x1 given elevated BNP, had adequate urine output. Kidney function remained stable. Depression -Continue citalopram as formulary conversion for home Lexapro Continue regimen for pain including oxycodone and gabapentin Stable for discharge home. Spent 40 minutes in discharge counseling and direct care with patient. Exam Data for Last 24 hours Vital signs and Labs for Last 24 Hours: Temp Pulse Resp BP Pulse Ox 97.7 F 93 H 18 137/98 H 99 03/18/23 07:41 03/18/23 07:41 03/18/23 07:41 03/18/23 07:41 03/18/23 08:00 Laboratory Results - last 24 hr 03/17/23 11:30: WBC 11.3 H, RBC 4.21, Hgb 12.5, Hct 37.7, MCV 89.4, MCH 29.7, MCHC 33.2, RDW 14.9, Plt Count 330, MPV 8.4, Neut % (Auto) 84.8 H, Lymph % (Auto) 11.0, [place] % (Auto) 3.6, Eos % (Auto) 0.3, Baso % (Auto) 0.2, Neut # (Auto) 9.6 H, Lymph # (Auto) 1.3, [place] # (Auto) 0.4, Eos # (Auto) 0.0, Baso # (Auto) 0.0 03/17/23 11:30: Sodium 138, Potassium 3.4 L, Chloride 100, Carbon Dioxide 22, Anion Gap 19.4 H, BUN 6 L, Creatinine 0.90, Estimated Creat Clear 50, Estimated GFR 63, Est GFR ( Amer) 77, Glucose 137 H, Calcium 9.2, Total Bilirubin 0.4, AST 36, ALT 26, Alkaline Phosphatase 120, Total Protein 7.1, Albumin 4.6, Globulin 2.5, Albumin/Globulin Ratio 1.8 03/17/23 11:30: Lactate 2.9 H 03/17/23 11:30: D-Dimer 1.09 H 03/17/23 11:30: Magnesium 1.6 03/17/23 11:30: NT-Pro-B Natriuret Pep 504 H 03/17/23 14:00: SARS-CoV-2 (PCR) Not detected, Influenza A Untype (PCR) Not detected, Influenza Type B (PCR) Not detected 03/17/23 14:00: Chlamy pneumoniae PCR Not detected, Adenovirus (PCR) Not detected, B. pertussis DNA (PCR) Not detected, Coronavirus OC43 (PCR) Not detected, Coronavirus HKU1 (PCR) Not detected, Coronavirus 229E (PCR) Not detected, SARS-CoV-2 (PCR) Not detected, Coronavirus NL63 (PCR) Not detected, Human Metapneumovir PCR Not detected, Influenza A (H1) PCR Not detected, Influ A (H1N1/09) PCR
--- NOTE | 2023-03-18 11:54 | HMH.PHAINT1 ---
Pharmacy Intervention Comments: Discharge medications counseling completed. Patient was starting the following medications: -Azithromycin: discussed potential side effect of nausea or diarrhea and encourage patient to take with food if this occurred -Prednisone: told patient of potential side effects such as mood changes and insomnia. Encouraged patient not to take this medication very close to bedtime so it would not keep her awake. Patient verbalized understanding of these new meds. She did not have any additional questions.
[2023-03-18 13:15] VITALS: PULSE 77
--- NOTE | 2023-03-19 11:39 | CARE MANAGER ---
Contacted patient related to hospital discharge. She picked up her medications and is aware of follow up appointment. Denies questions or concerns. FAIZAN Ordaz
== END 2023-03-18 13:30 | disposition home or self-care (01) ==
LOC: ER 14:30 → 2ND 14:44
PROVIDERS: Admitting Provider Internal Medicine Adolescent Medicine; Emergency Provider Emergency Medicine; PCP Emergency Medicine; Visit Provider Internal Medicine Adolescent Medicine
DX: J44.1 Chronic obstructive pulmonary disease with (acute) exacerbation (principal); I10 Essential (primary) hypertension; F32.9 Major depressive disorder, single episode, unspecified; M54.16 Radiculopathy, lumbar region; Z79.899 Other long term (current) drug therapy; R06.9 Unspecified abnormalities of breathing; Z20.822 Contact with and (suspected) exposure to COVID-19
CPT/HCPCS: G0378; 36415; 71046; 71275; 80053; 83605; 83735; 83880; 85025; 85378; 87040; 87070; 87077; 87205; 87581; 87632; 87635; 87636; 87798; 93005; 94640; 99285; C9803; J0456; J0696; Q9967; U0003; U0005

== ENCOUNTER → 2023-05-20 13:00 | Outpatient (CLI) | payer MEDICARE, MEDICAID, SELFPAY ==
[2023-05-20 19:53] LABS: Barbiturates Screen,Urine Negative ng/ml (<200)
[2023-05-20 19:55] LABS: Amphetamine/Metha Screen,Urine Negative ng/ml (<1000); Benzodiazepines Screen,Urine Negative ng/ml (<200)
[2023-05-20 19:56] LABS: Cannabinoid Screen,Urine Positive ng/ml (<50)
[2023-05-20 19:57] LABS: Cocaine Screen,Urine Negative ng/ml (<300)
[2023-05-20 19:58] LABS: Methadone Screen,Urine Negative ng/ml (<300); Opiate Screen,Urine Negative ng/ml (<300)
[2023-05-20 19:59] LABS: Phencyclidine Screen,Urine Negative ng/ml (<25)
== END ==
PROVIDERS: PCP Emergency Medicine; Visit Provider Emergency Medicine
DX: M54.16 Radiculopathy, lumbar region (principal)
CPT/HCPCS: 80305

== ENCOUNTER → 2023-07-17 06:55 | Outpatient (CLI) | payer MEDICARE, MEDICAID, SELFPAY ==
[2023-07-17 19:28] LABS: Barbiturates Screen,Urine Negative ng/ml (<200)
[2023-07-17 19:31] LABS: Benzodiazepines Screen,Urine Negative ng/ml (<200)
[2023-07-17 19:32] LABS: Cannabinoid Screen,Urine Positive ng/ml (<50); Cocaine Screen,Urine Negative ng/ml (<300)
[2023-07-17 19:33] LABS: Methadone Screen,Urine Negative ng/ml (<300)
[2023-07-17 19:34] LABS: Opiate Screen,Urine Negative ng/ml (<300); Phencyclidine Screen,Urine Negative ng/ml (<25)
[2023-07-17 19:59] LABS: Amphetamine/Metha Screen,Urine Negative ng/ml (<1000)
== END ==
PROVIDERS: PCP Emergency Medicine; Visit Provider Emergency Medicine
DX: M54.16 Radiculopathy, lumbar region (principal)
CPT/HCPCS: 80305

== ENCOUNTER 2023-11-11 11:45 | Outpatient (CLI) | payer MEDICARE, MEDICAID, SELFPAY ==
[2023-11-11 12:08] LABS: Basophils # 0.1 K/mm3 (0-0.2); Basophils % 0.6 % (0.1-2.0); Eosinophils # 0.6 K/mm3 (0.0-0.4); Eosinophils % 6.8 % (0.1-12.0); Hematocrit 39.3 % (37.0-47.0); Lymphocytes # 1.9 K/mm3 (0.7-4.5); Lymphocytes % 23.7 % (10-50); Mean Corpuscular HGB Conc 33.1 g/dL (31.8-35.4); Mean Corpuscular Hemoglobin 29.9 pg (27.0-31.2); Mean Corpuscular Volume 90.4 fl (81-99); Monocytes # 0.5 K/mm3 (0.1-1.0); Monocytes % 5.8 % (1.7-9.3); Neutrophils # 5.1 K/mm3 (1.8-7.8); Neutrophils % 63.1 % (37.0-80.0); Platelet Count 348 K/mm3 (142-424); Red Blood Count 4.35 M/mm3 (4.20-5.40); White Blood Count 8.1 K/mm3 (4.8-10.8)
[2023-11-11 12:18] LABS: Alanine Aminotransferase 17 U/L (12-78); Albumin Level 4.4 g/dl (3.5-5.0); Albumin/Globulin Ratio 1.8 (1.1-1.8); Alkaline Phosphatase 149 U/L (38-126); Anion Gap 14.7 mEq/L (5-15); Aspartate Amino Transferase 23 U/L (14-36); Bilirubin,Total 0.3 mg/dl (0.2-1.3); Blood Urea Nitrogen 7 mg/dl (7-17); Calcium 9.1 mg/dl (8.4-10.2); Carbon Dioxide 26 mmol/L (22.0-30.0); Chloride 102 mmol/L (98-107); Chol/HDL Ratio 3.9 (1-3.5); Cholesterol 178 mg/dl (140-200); Estimated Glomerular Filt Rate 56 ml/min (>60); GFR (African American) 68 ML/MIN (>60); Globulin 2.4 g/dL (1.3-3.2); HDL Cholesterol 46 mg/dl (40-60); Potassium 3.7 mmoL/L (3.5-5.1); Sodium 139 mmol/L (136-145); Total Protein,Serum 6.8 g/dl (6.3-8.2); Triglycerides 217 mg/dl (30-150); VLDL Cholesterol 43 mg/dL (0-40)
[2023-11-11 12:37] LABS: Thyroid Stimulating Hormone 0.88 uIU/mL (0.465-4.68)
[2023-11-11 13:29] LABS: 25-OH Vitamin D, Total 36.1 ng/mL (30-100)
[2023-11-11 13:53] LABS: Creatinine,Urine Random 89 mg/dL (Not Estab.)
[2023-11-11 13:56] LABS: Cannabinoid Screen,Urine Positive ng/ml (<50)
[2023-11-11 14:49] LABS: Microalbumin < 6.000 mg/L (0-16.7)
[2023-11-11 15:51] LABS: Amphetamine/Metha Screen,Urine Negative ng/ml (<1000); Barbiturates Screen,Urine Negative ng/ml (<200); Benzodiazepines Screen,Urine Negative ng/ml (<200); Cocaine Screen,Urine Negative ng/ml (<300); Methadone Screen,Urine Negative ng/ml (<300); Opiate Screen,Urine Negative ng/ml (<300); Phencyclidine Screen,Urine Negative ng/ml (<25)
[2023-11-11 17:28] LABS: Hemoglobin A1C 5.9 % (4.0-6.0)
[2023-11-11 18:00] LABS: Vitamin B12 341 pg/mL (239-931)
== END 2023-11-11 23:59 ==
LOC: LAB.DROPOF 11:46
PROVIDERS: PCP Internal Medicine; Visit Provider Internal Medicine
DX: R53.83 Other fatigue (principal); Z79.899 Other long term (current) drug therapy; E53.8 Deficiency of other specified B group vitamins; E11.9 Type 2 diabetes mellitus without complications; E78.5 Hyperlipidemia, unspecified; E55.9 Vitamin D deficiency, unspecified
CPT/HCPCS: 80053; 80061; 80307; 82043; 82306; 82570; 82607; 83036; 84443; 85025

== ENCOUNTER 2024-04-18 13:24 | Outpatient (POV) | payer MEDICARE, MEDICAID, SELFPAY | END 2024-04-18 23:59 | disposition home or self-care (01) | LOC: SC 13:24 | PROVIDERS: Visit Provider Nurse Practitioner | DX: Z00.00 Encounter for general adult medical examination without abnormal findings (principal) ==

== ENCOUNTER 2025-06-15 10:19 | Outpatient (CLI) | payer MEDICARE, MEDICAID, SELFPAY ==
--- OUTSIDE RECORDS SUMMARY | 2025-06-15 10:21 | XMS_ITS | Clinical Summary ---
Author Organization [facility] Address [address] [place] [address] Phone Care Team Providers Care Medical Office Specialist Name Role Phone Unavailable Primary Care Provider Unavailabl e Allergies Active Allergy Reactions Criticality Noted Date Comments Nitroglycerin Other (See Comments) 06/03/2012 Reported allergy to paste but not SL, causes hypotension Sulfa (Sulfonamide Antibiotics) 06/03/2012 Medications ESCITALOPRAM OXALATE (LEXAPRO ORAL) Take by mouth. Active Aspirin 81 mg Take 81 mg by mouth daily. 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 CHF (congestive heart failure) (HCC) Anemia Social History Tobacco Use Types Packs/Day Years Used Date Smoking Tobacco: Never Alcohol Use Standard Drinks/Week Comments No 0 (1 standard drink = 0.6 oz pur e alcohol) Comments No Sex and Gender Information Value Date Recorded Sex Assigned at Not on file Legal Sex Female 4:35 AM EDT Gender Identity Not on file Sexual Orientation Not on file Obstetrics History Last Filed Vital Signs Vital Sign Reading Time Taken Comments Blood Pressure 116/79 06/03/2012 2:00 PM EDT Pulse 70 06/03/2012 2:00 PM EDT Temperature 37.1 C (98.8 F) 06/03/2012 11:50 AM EDT Respiratory Rate 14 06/03/2012 2:00 PM EDT Oxygen Saturation 100% 06/03/2012 12:00 PM EDT Inhaled Oxygen Concentration - - Weight 55.8 kg (123 lb) 06/03/2012 11:50 AM EDT Height 157.5 cm (5' 2 ) 06/03/2012 11:50 AM EDT Body Mass Index 22.5 06/03/2012 11:50 AM EDT Plan of Treatment Health Maintenance Due Date Last Done Comments Wellness Exam Medicare 1963 Hepatitis C Screening 1978 DTaP/TDaP/Td (1 - Tdap) 1979 Cervical Cancer Screening 1981 Pap Smear 1981 HPV/Pap Cotest 1990 Breast Cancer Screening 2000 Cologuard 2005 Colon Cancer Screening 2005 Colonoscopy 2005 FIT 2005 Sigmoidoscopy 2005 Virtual Colonography 2005 Pneumococcal Vaccine 50+ (1 of 1 - PCV) 2010 Zoster (1 of 2) 2010 COVID-19 Vaccine (1 - 2023-2 5 season) 2024 Bone Density Screening 2025 Influenza Vaccine (#1) 2025 Hepatitis B Vaccine Aged Out No longe r eligible based on patient's age to complete this topic Meningococcal B Vaccine Aged Out No l onger eligible based on patient's age to complete this topic Insurance MEDICARE [place] PART A AND B [place] [id number]
--- OUTSIDE RECORDS SUMMARY | 2025-06-15 10:22 | XMS_ITS | Clinical Summary ---
Author Organization Healthcare Address [address] [place] [address] Care Team Providers Care Waste Disposal Attendant Name Role Phone Unavailable Primary Care Provider Unavailabl e Allergies Active Allergy Reactions Criticality Noted Date Comments Sulfa Drugs Hives Medium 07/25/2023 Medications oxyCODONE (Roxicodone) 10 MG immediate release tablet 08/21/2023 Acti ve gabapentin (Neurontin) 800 MG tablet Take 1 tablet (800 mg) by mouth 3 (three) times a day. 08/21/2023 Active escitalopram (Lexapro) 20 MG tablet 08/21/2023 Active EPINEPHrine (Epipen) 0.3 MG/0.3ML injection syringe 05/29/2023 Active cyclobenzaprine (Flexeril) 10 MG tablet 08/21/2023 Active Symbicort 80-4.5 MCG/ACT inhaler 08/21/2023 Active bisoprolol (Zebeta) 5 MG tablet 05/29/2023 Active atorvastatin (Lipitor) 40 MG tablet 08/21/2023 Active ASPIRIN 81 MG chewable tablet Chew 1 tablet (81 mg) 1 (one) time each day. Active cetirizine (ZyrTEC) 10 MG tablet Take 1 tablet (10 mg) by mouth. 04/07/2024 Active omeprazole (PriLOSEC) [address] capsule Take 1 capsule (40 mg) by mouth. 04/07/2024 Active rOPINIRole (Requip) 0.5 MG tablet Take 1 tablet (0.5 mg) by mouth. 04/07/2024 Active Immunizations Immunization Administration Dates Next Due Influenza, injectable, quadrivalent, preservativ e free 11/12/2020 Influenza, seasonal, injectable, preservative fr ee 09/03/2018,06/30/2012 Pneumococcal Polysaccharide PPV23 01/09/2021 TD (adult), 2 Lf tetanus tox oid, preservative free, adsorbed 01/02/1997 Family History Medical History Relation Name Comments Cancer Father Heart disease Mother Relation Name Status Comments Father Mother Social History Tobacco Use Types Packs/Day Years Used Date Smoking Tobacco: Never Passive Smoke Exposure: Never Smokeless Tobacco: Never Tobacco Cessation:Counseling Given: Not Answered Alcohol Use Standard Drinks/Week Comments Never 0 (1 standard drink = 0.6 oz pur e alcohol) Comments Unknown Sex and Gender Information Value Date Recorded Sex Assigned at Not on file Legal Sex Female 7:49 PM EDT Gender Identity Not on file Sexual Orientation Not on file Last Filed Vital Signs Vital Sign Reading Time Taken Comments Blood Pressure 142/84 04/18/2024 11:20 AM EDT Pulse 58 04/18/2024 11:20 AM EDT Temperature 36.4 C (97.6 F) 07/26/2023 3:00 AM EDT Respiratory Rate 15 07/26/2023 3:00 AM EDT Oxygen Saturation 99% 04/18/2024 11:20 AM EDT Inhaled Oxygen Concentration - - Weight 58.1 kg (128 lb) 04/18/2024 11:20 AM EDT Height 154.9 cm (5' 1 ) 04/18/2024 11:20 AM EDT Body Mass Index 24.19 04/18/2024 11:20 AM EDT Plan of Treatment Health Maintenance Due Date Last Done Comments [facility]-Bone Density Scan 1960 [facility]-Depression Screening 1960 [facility]-/Child/Adol SDOH Screenings 1960 [facility]- SDOH Screenings 1978 [facility]-Adult SDOH Screenings 1978 [facility]-DTaP,Tdap,and Td Vaccine s (1 - Tdap) 01/03/1997 01/02/1997 CT Colonography 2005 Colonoscopy 2005 FIT-DNA 2005 FIT 2005 FOBT 2005 Sigmoidoscopy 2005 [facility]-Colorectal Cancer Screening 2005 [facility]-Breast Cancer Screening 2010 [facility]-Zoster Vaccines (1 of 2) 2010 [facility]-Pneumococcal Vaccine: 50 + Years (2 of 2 - PCV) 01/09/2022 01/09/2021 [id number] Vaccine (1 - 2023- season) 2024 [facility]-Influenza Vaccine (#1) 07/03/202511/12, 09/03/2018, 06/30/2012 [facility]-RSV Vaccine: 60+ Years o r (1 - 1-dose 75+ series) 2035 [facility]-Hepatitis C Screening Completed 07/25/2023 HPV Vaccines Aged Out No longer eligi ble based on patient's age to complete this topic [facility]-HIB Vaccines Aged Out No longer e ligible based on patient's age to complete this topic [facility]-Hepatitis A Vaccines Aged Out No longer eligible based on patient's age to complete this topic [facility]-IPV Vaccines Aged Out No longer e ligible based on patient's age to complete this topic [facility]-Rotavirus Vaccines Aged Out No lo nger eligible based on patient's age to complete this topic Procedures Procedure Name Priority Date/Time Associated Diagnosis Comments HEPATITIS C ANTIBODY - ED W/REFLEX TO HCV QUANT PCR STAT 07/25/2023 10:19 PM EDT from Last 3 Months or Most Recently Relevant to Health Maintenance Results * Hepatitis C Antibody - ED (07/25/2023 10:19 PM EDT) Hepatitis C Antibody Negative Negative 07/25/2023 11:27 PM EDT [facility] Blood Venous blood specimen / Unknown Venipuncture / Unknown 07/25/2023 10:19 PM EDT 07/25/2023 10:44 PM EDT us Alexus Montejo DO LAB BLOOD ORDERABLES Final Re sult [facility] [address] [place] [address] from Last 3 Months or Most Recently Relevant to Health Maintenance Insurance [employer] [place] [facility] [employer]
--- NOTE | 2025-06-15 11:00 | CA_ITS ---
APPROVED REPORT EXAM: Comprehensive 2D, Doppler, and color-flow Echocardiogram Financial Officer: Shell Araujo RT(R) Ht: 5 ft 1 in Wt: 127lbs BSA: 1.56 BP: 109/78 mmHg Indications: pre op assessment for hernia repair 2D Dimensions LVEF (Pierre's) 45.50 % F: 54 - 74 LV Volume 96.20 mL F: 46 - 106 LV Volume Index 61.7 mL/m2 F: 29 - 61 EF AP4 38.70 % EF AP2 52.5 % EF BP 45.5 % GL Strain -13.0 % M-Mode Dimensions RVDd 2.79 cm (0.9-2.6) LA Diam 3.75 cm (1.9-4.0) LVDd 3.63 cm (3.5-5.7) LVDs 2.32 cm (3.5-5.7) IVSd 0.68 cm (0.6-1.1) PWd 0.46 cm (0.6-1.1) EF (Teich) 66.70% FS 36.10% EDV (Teich) 55.50 mL ESV (Teich) 18.50 mL LV Diastology E Decel Time 217 (160-240 msec) E/A Ratio 0.8 Mitral Valve MV E Max Mitchell. 76.0 (40-130 cm/s) MV A Velocity 95.0 (40-130 cm/s) E/A Ratio 0.80 MV PHT 63.0 ms Tricuspid Valve TR P. Velocity 230.00 cm/s Left Ventricle The left ventricle is normal size. Left ventricular systolic function is mildly to moderately reduced. There is increased left ventricular wall thickness. Mild to moderate global hypokinesis is present. Grade 1 diastolic dysfunction is present. LVEF is 40% Right Ventricle The right ventricle is normal size. The right ventricular systolic function is normal. Atria The left atrium is mildly dilated. The right atrium size is normal. There is no color Doppler evidence of interatrial shunt. Aortic Valve The aortic valve is mildly thickened. There is no hemodynamically significant aortic valvular stenosis. Mild aortic regurgitation is present. Mitral Valve The mitral valve is normal in structure. No evidence of mitral valve stenosis. Mild mitral regurgitation is present. Tricuspid Valve The tricuspid valve leaflets are thin and pliable. Mild tricuspid regurgitation. RVSP is 20-25 mmHg. Pulmonic Valve The pulmonary valve is grossly normal in structure. Trace pulmonic valve regurgitation is present. Great Vessels The aortic root is normal in size. IVC is normal in size and collapses >50% with inspiration. Pericardium There is no pericardial effusion. Other Information Study Quality: Fair Conclusion Mild to moderate reduction in LV systolic function (LVEF 40%). Mild AI, mild MR, mild TR. Electronically signed by : Kathy Garcia MD 06/16/2025 12:13:49
== END 2025-06-15 23:59 | disposition home or self-care (01) ==
LOC: RT 10:20
PROVIDERS: PCP Nurse Practitioner; Visit Provider Nurse Practitioner Family
DX: Z01.810 Encounter for preprocedural cardiovascular examination (principal); I08.3 Combined rheumatic disorders of mitral, aortic and tricuspid valves; R93.1 Abnormal findings on diagnostic imaging of heart and coronary circulation; R94.31 Abnormal electrocardiogram [ECG] [EKG]
CPT/HCPCS: 93306

== ENCOUNTER 2025-07-21 14:11 | Outpatient (CLI) | payer MEDICARE, MEDICAID, SELFPAY ==
--- OUTSIDE RECORDS SUMMARY | 2025-07-21 14:14 | XMS_ITS | Clinical Summary ---
Author Organization Healthcare Address [address] [place] [address] Care Team Providers Care Floor Sander Name Role Phone Unavailable Primary Care Provider [...] (2 of 2 - PCV) 01/09/2022 01/09/2021 [id number] Vaccine (1 - season) 2025 [facility]-Influenza Vaccine (#1) 07/03/202511/12, 09/03/2018, 06/30/2012 [facility]-RSV [...] Final Re sult [facility] [address] [place] [address] from Last 3 Months or Most Recently Relevant to Health Maintenance Insurance [employer] [facility] [employer]ID
[2025-07-21 16:25] LABS: Chloride 102 mmol/L (98-107)
[2025-07-21 16:26] LABS: Potassium 4.5 mmoL/L (3.5-5.1); Sodium 135 mmol/L (136-145)
[2025-07-21 16:29] LABS: Anion Gap 16.5 mEq/L (5-15); Blood Urea Nitrogen 12 mg/dl (7-17); Calcium 9.6 mg/dl (8.4-10.2); Carbon Dioxide 21 mmol/L (22.0-30.0); Creatinine,Serum 1.00 mg/dl (0.52-1.04); Estimated Glomerular Filt Rate 56 ml/min (>60); GFR (African American) 67 ML/MIN (>60); Glucose 111 mg/dl (74-100)
== END 2025-07-21 23:59 | disposition home or self-care (01) ==
LOC: LAB 14:12
PROVIDERS: PCP Nurse Practitioner; Visit Provider Nurse Practitioner Family
DX: I10 Essential (primary) hypertension (principal)
CPT/HCPCS: 36415; 80048